=== PATIENT | female | born 1955 | race Caucasian/White ===

== ENCOUNTER 2017-03-01 00:33 | Emergency (ER) | payer OTHER ==
[~2017-03-01] VITALS: Ht 167.6 cm; Wt 73.0 kg
[~2017-03-01 00:33] MED LIST: CARV3.1246 PO; DULO60CA41 PO; FURO40TA5 PO; KLO1 PO; METF-305 PO; PARO30TA62 PO; POTA10TA80 PO; SIMV40TA5 PO; SPIR50TA26 PO
[2017-03-01 00:35] VITALS: BP_SYST 156
--- NOTE | 2017-03-01 00:35 | NUR ---
Patient to ER bed 1 to gown for evaluation. Side rails up. Report given to NAHUM RN AND RAQUEL PARKER.
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
--- NOTE | 2017-03-01 02:18 | NUR ---
ER at bedside examining patient.
[2017-03-01 02:30] LABS: BILIRUBIN,URINE NEGATIVE (NEGATIVE); BLOOD, URINE NEGATIVE (NEGATIVE); COLOR,URINE YELLOW (YELLOW); GLUCOSE,URINE 3+ (NEGATIVE); KETONES,URINE NEGATIVE (NEGATIVE); LEUKOCYTE ESTERASE ,URINE NEGATIVE (NEGATIVE); NITRITE, URINE NEGATIVE (NEGATIVE); PH,URINE 5.5 (5.0-8.0); PROTEIN URINE NEGATIVE (NEGATIVE); UROBILINOGEN,URINE 0.2 (0.2-1.0)
[2017-03-01 02:51] LABS: CLARITY/URINE SLIGHTLY HAZY (CLEAR)
[2017-03-01 02:53] LABS: BACTERIA,URINE MODERATE /HPF (None Seen); MUCUS,URINE None Seen /LPF (None Seen); RBC,URINE 0-3 /HPF (0-3)
[2017-03-01 03:01] VITALS: BP_SYST 136
--- NOTE | 2017-03-01 03:01 | NUR ---
Patient given written and verbal discharge instructions and verbalizes understanding. ER MD discussed with patient the results and treatment provided. G Patient in stable condition. ID arm band removed. Patient educated on pain management and to follow up with PMD x 4-5 days. Pain Scale 0/10 Opportunity for questions provided and answered.
== END 2017-03-01 03:01 | disposition home or self-care (01) ==
LOC: SED 00:33
DX: F41.9 Anxiety disorder, unspecified (principal); E11.65 Type 2 diabetes mellitus with hyperglycemia; I50.9 Heart failure, unspecified; F32.9 Major depressive disorder, single episode, unspecified; Z88.8 Allergy status to other drugs, medicaments and biological substances; Z88.5 Allergy status to narcotic agent
CPT/HCPCS: 81000-TC; 82962; 87086; 99284

== ENCOUNTER 2017-03-31 16:30 | Emergency (ER) | payer OTHER ==
[~2017-03-31] VITALS: Ht 167.6 cm; Wt 73.5 kg
[2017-03-31 16:30] VITALS: BP_SYST 147
[2017-03-31] MEDS ORDERED: LORazepam 1 MG TABLET PO ONE (17:00)
[2017-03-31 17:13] LABS: BASOPHILS # (AUTO) 0.1 K/uL (0.0-0.2); BASOPHILS % (AUTO) 0.8 % (0.0-2.0); EOSINOPHILS # (AUTO) 0.2 K/uL (0.0-0.4); HEMATOCRIT 35.1 % (36-48); HEMOGLOBIN 11.6 g/dL (12.0-16.0); LYMPHOCYTES # (AUTO) 2.6 K/uL (1.0-5.5); LYMPHOCYTES % (AUTO) 30.9 % (20.5-51.5); MEAN CORPUSCULAR HEMOGLOBIN 28 pg (27-31); MEAN CORPUSCULAR HGB CONC 33 % (32-36); MEAN CORPUSCULAR VOLUME 83 fL (79.0-98.0); MONOCYTES # (AUTO) 0.6 K/uL (0.0-1.0); MONOCYTES % (AUTO) 7.1 % (1.7-9.3); NEUTROPHILS # (AUTO) 4.8 K/uL (1.8-7.7); NEUTROPHILS % (AUTO) 58.2 % (40.0-70.0); PLATELET COUNT (AUTO) 279 K/uL (130-430); RED BLOOD CELL COUNT(AUTO) 4.23 MIL/uL (4.2-6.2); RED CELL DISTRIBUTION WIDTH 12.6 % (9.0-15.0); WHITE BLOOD COUNT (AUTO) 8.3 K/uL (4.8-10.8)
[2017-03-31 17:25] LABS: ANION GAP 9 (5-15); CALCIUM 8.1 mg/dL (8.4-11.0); CHLORIDE 105 mmol/L (98-107); CREATININE 1.41 mg/dL (0.55-1.30); GLUCOSE 149 mg/dL (70-99); POTASSIUM 4.2 mmol/L (3.5-5.1); SODIUM SERUM 141 mmol/L (136-145); UREA NITROGEN, BLOOD 24 mg/dL (8-21)
[2017-03-31 17:26] LABS: GFR AFRICAN AMERICAN 49 mL/min (>90)
[2017-03-31 18:20] VITALS: BP_SYST 136
== END 2017-03-31 18:20 | disposition home or self-care (01) ==
LOC: SED 16:30
DX: Z76.0 Encounter for issue of repeat prescription (principal); F41.9 Anxiety disorder, unspecified; E11.9 Type 2 diabetes mellitus without complications; Z86.73 Personal history of transient ischemic attack (TIA), and cerebral infarction without residual deficits; Z88.6 Allergy status to analgesic agent; Z88.8 Allergy status to other drugs, medicaments and biological substances
CPT/HCPCS: 36415; 80048; 84484; 85025; 93005; 99285

== ENCOUNTER 2017-04-20 00:21 | Emergency (ER) | payer OTHER ==
[~2017-04-20] VITALS: Ht 167.6 cm; Wt 72.6 kg
[2017-04-20 00:22] VITALS: BP_SYST 129
[2017-04-20 01:06] LABS: BASOPHILS # (AUTO) 0.1 K/uL (0.0-0.2); BASOPHILS % (AUTO) 1.1 % (0.0-2.0); EOSINOPHILS # (AUTO) 0.3 K/uL (0.0-0.4); EOSINOPHILS % (AUTO) 3.1 % (0.0-4.0); HEMATOCRIT 36.7 % (36-48); HEMOGLOBIN 12.5 g/dL (12.0-16.0); LYMPHOCYTES # (AUTO) 2.6 K/uL (1.0-5.5); LYMPHOCYTES % (AUTO) 24.9 % (20.5-51.5); MEAN CORPUSCULAR HEMOGLOBIN 29 pg (27-31); MEAN CORPUSCULAR HGB CONC 34 % (32-36); MEAN CORPUSCULAR VOLUME 84 fL (79.0-98.0); MONOCYTES # (AUTO) 0.9 K/uL (0.0-1.0); MONOCYTES % (AUTO) 8.4 % (1.7-9.3); NEUTROPHILS # (AUTO) 6.4 K/uL (1.8-7.7); NEUTROPHILS % (AUTO) 62.5 % (40.0-70.0); PLATELET COUNT (AUTO) 276 K/uL (130-430); RED BLOOD CELL COUNT(AUTO) 4.39 MIL/uL (4.2-6.2); RED CELL DISTRIBUTION WIDTH 11.9 % (9.0-15.0); WHITE BLOOD COUNT (AUTO) 10.3 K/uL (4.8-10.8)
[2017-04-20 01:18] LABS: CALCIUM 8.3 mg/dL (8.4-11.0); CREATININE 1.49 mg/dL (0.55-1.30)
[2017-04-20 01:23] LABS: ALBUMIN 3.6 g/dL (3.4-4.8); TOTAL BILIRUBIN 0.5 mg/dL (0.0-1.0); TOTAL PROTEIN, SERUM 7.7 g/dL (6.4-8.3)
[2017-04-20 01:52] LABS: BILIRUBIN,URINE NEGATIVE (NEGATIVE); BLOOD, URINE NEGATIVE (NEGATIVE); CLARITY/URINE CLEAR (CLEAR); COLOR,URINE YELLOW (YELLOW); GLUCOSE,URINE NEGATIVE (NEGATIVE); KETONES,URINE NEGATIVE (NEGATIVE); LEUKOCYTE ESTERASE ,URINE 1+ (NEGATIVE); NITRITE, URINE NEGATIVE (NEGATIVE); PH,URINE 5.5 (5.0-8.0); PROTEIN URINE NEGATIVE (NEGATIVE); UROBILINOGEN,URINE 0.2 (0.2-1.0)
[2017-04-20 02:13] LABS: RBC,URINE 0-3 /HPF (0-3)
[2017-04-20 02:14] LABS: BACTERIA,URINE MODERATE /HPF (None Seen); FINE GRANULAR CASTS,URINE 0-10 /LPF (None Seen); MUCUS,URINE 1+ /LPF (None Seen)
[2017-04-20 02:36] VITALS: BP_SYST 129
== END 2017-04-20 02:36 | disposition home or self-care (01) ==
LOC: SED 00:21
DX: K43.2 Incisional hernia without obstruction or gangrene (principal); N39.0 Urinary tract infection, site not specified; Z86.73 Personal history of transient ischemic attack (TIA), and cerebral infarction without residual deficits; Z88.8 Allergy status to other drugs, medicaments and biological substances
CPT/HCPCS: 36415; 80053; 81000-TC; 82150-TC; 83605; 83690-TC; 85025; 87040-TC; 87086; 93005; 99285

== ENCOUNTER 2017-10-20 00:53 | Emergency (ER) | payer OTHER ==
[~2017-10-20] VITALS: Ht 165.1 cm; Wt 73.0 kg
[2017-10-20 00:55] VITALS: BP_SYST 157
[2017-10-20] MEDS ORDERED: ACETAMINOPHEN 325 MG TABLET PO ONE (01:30)
[2017-10-20 03:00] VITALS: BP_SYST 154
[2017-10-21] MEDS ORDERED: LORA-258 PO (00:16)
[2017-10-21] MEDS ORDERED: SPIR25TA4 PO (00:16)
[2017-10-21] MEDS ORDERED: GLIM1TAB PO (00:16)
== END 2017-10-20 03:05 | disposition home or self-care (01) ==
LOC: SED 00:53
DX: K42.9 Umbilical hernia without obstruction or gangrene (principal); E11.9 Type 2 diabetes mellitus without complications; I50.9 Heart failure, unspecified; F32.9 Major depressive disorder, single episode, unspecified; Z88.5 Allergy status to narcotic agent; Z88.8 Allergy status to other drugs, medicaments and biological substances; Z79.899 Other long term (current) drug therapy
CPT/HCPCS: 82962; 99282

== ENCOUNTER 2019-06-03 00:16 | Inpatient (IN) | payer OTHER ==
[~2019-06-03] VITALS: Ht 165.1 cm; Wt 75.3 kg
[~2019-06-03 00:16] MED LIST changes: +GLIM1TAB PO; +LORA-258 PO; -METF-305 PO; +METF-381 PO; +POTA10TA PO; -POTA10TA80 PO; +SPIR25TA6 PO; -SPIR50TA26 PO
--- NOTE | 2019-06-03 00:30 | NUR ---
Patient to ER bed 4 to gown for evaluation. Side rails up.
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
--- NOTE | 2019-06-03 00:40 | NUR ---
ER at bedside examining patient.
[2019-06-03] MEDS ORDERED: NS 500 ML IV ONE (01:00)
--- NOTE | 2019-06-03 01:00 | NUR ---
PT resting comfortably in bed, no signs of acute distress. Will cont. to monitor.
[2019-06-03 01:49] LABS: BASOPHILS # (AUTO) 0.1 K/uL (0.0-0.2); BASOPHILS % (AUTO) 1.3 % (0.0-2.0); EOSINOPHILS # (AUTO) 0.2 K/uL (0.0-0.4); HEMATOCRIT 38.4 % (36-48); HEMOGLOBIN 12.8 g/dL (12.0-16.0); LYMPHOCYTES # (AUTO) 2.7 K/uL (1.0-5.5); LYMPHOCYTES % (AUTO) 29.2 % (20.5-51.5); MEAN CORPUSCULAR HEMOGLOBIN 28 pg (27-31); MEAN CORPUSCULAR HGB CONC 33 % (32-36); MEAN CORPUSCULAR VOLUME 84 fL (79.0-98.0); MONOCYTES # (AUTO) 0.7 K/uL (0.0-1.0); MONOCYTES % (AUTO) 8.1 % (1.7-9.3); NEUTROPHILS # (AUTO) 5.4 K/uL (1.8-7.7); NEUTROPHILS % (AUTO) 59.4 % (40.0-70.0); PLATELET COUNT (AUTO) 259 K/uL (130-430); RED BLOOD CELL COUNT(AUTO) 4.56 MIL/uL (4.2-6.2); WHITE BLOOD COUNT (AUTO) 9.2 K/uL (4.8-10.8)
--- NOTE | 2019-06-03 02:00 | NUR ---
PT resting comfortably in bed, no signs of acute distress. Will cont. to monitor.
[2019-06-03 02:05] LABS: CALCIUM 8.3 mg/dL (8.4-11.0); CREATININE 1.49 mg/dL (0.55-1.30); POTASSIUM 3.2 mmol/L (3.5-5.1)
[2019-06-03 02:10] LABS: ALBUMIN 3.1 g/dL (3.4-4.8); TOTAL BILIRUBIN 0.4 mg/dL (0.0-1.0)
[2019-06-03 02:21] LABS: PROTHROMBIN TIME 10.6 SECS (9.5-12.5)
[2019-06-03] MEDS ORDERED: NACL 0.9% 2,000 ML IV ONE (02:45)
[2019-06-03] MEDS ORDERED: cefTRIAXone 1 GM IVPB PREMIX 50 ML IV ONE (02:45)
[2019-06-03 02:59] LABS: BILIRUBIN,URINE NEGATIVE (NEGATIVE); BLOOD, URINE NEGATIVE (NEGATIVE); CLARITY/URINE CLEAR (CLEAR); COLOR,URINE YELLOW (YELLOW); GLUCOSE,URINE TRACE (NEGATIVE); KETONES,URINE NEGATIVE (NEGATIVE); LEUKOCYTE ESTERASE ,URINE NEGATIVE (NEGATIVE); NITRITE, URINE NEGATIVE (NEGATIVE); PH,URINE 5.5 (5.0-8.0); PROTEIN URINE TRACE (NEGATIVE); UROBILINOGEN,URINE 0.2 (0.2-1.0)
[2019-06-03] MEDS ORDERED: POTASSIUM CHLORIDE 20 MEQ TAB.PRT.SR PO ONE (03:00)
[2019-06-03 03:03] LABS: BACTERIA,URINE MODERATE /HPF (None Seen); RBC,URINE 0-3 /HPF (0-3); WBC,URINE 0-3 /HPF (0-3)
--- NOTE | 2019-06-03 03:28 | NUR ---
Medication reconciliation completed with information provided by patient. Any prior medication reconciliation on file was reviewed and corrected.
--- NOTE | 2019-06-03 03:55 | NUR ---
Patient will be admitted to care of Dr. Sanchez. Admitted to Tele unit. Will go to room 135. Belongings list completed. Summary report printed. Report will be given at bedside.
[2019-06-03] MEDS ORDERED: ONDANSETRON HCL 4 MG/2 ML VIAL IVP PRN (04:30)
[2019-06-03] MEDS ORDERED: NACL 0.9% 1,000 ML IV ONE (04:30)
[2019-06-03] MEDS ORDERED: ACETAMINOPHEN 325 MG TABLET PO PRN (04:30)
--- NOTE | 2019-06-03 04:43 | NUR ---
Transfer to Tele via ACLS protocol. Licensed nurse present. IV present no signs or symptoms of infiltration.
--- NOTE | 2019-06-03 04:43 | NUR ---
ADMISSION: The patient, MORRO CABALLERO, 64 y/o, F admitted with diagnosis of elevated lactic acid , was given written information regarding hospital policies, unit procedures and contact persons by primary nurse, Catherine Abrams RN.
[2019-06-03 05:17] VITALS: BP_SYST 152
[2019-06-03 06:16] LABS: BASOPHILS # (AUTO) 0.1 K/uL (0.0-0.2); BASOPHILS % (AUTO) 0.8 % (0.0-2.0); EOSINOPHILS # (AUTO) 0.2 K/uL (0.0-0.4); EOSINOPHILS % (AUTO) 2.2 % (0.0-4.0); HEMATOCRIT 35.4 % (36-48); HEMOGLOBIN 11.9 g/dL (12.0-16.0); LYMPHOCYTES # (AUTO) 3.5 K/uL (1.0-5.5); LYMPHOCYTES % (AUTO) 35.3 % (20.5-51.5); MEAN CORPUSCULAR HEMOGLOBIN 29 pg (27-31); MEAN CORPUSCULAR HGB CONC 34 % (32-36); MEAN CORPUSCULAR VOLUME 85 fL (79.0-98.0); MONOCYTES # (AUTO) 0.8 K/uL (0.0-1.0); MONOCYTES % (AUTO) 7.6 % (1.7-9.3); NEUTROPHILS # (AUTO) 5.3 K/uL (1.8-7.7); NEUTROPHILS % (AUTO) 54.1 % (40.0-70.0); PLATELET COUNT (AUTO) 234 K/uL (130-430); RED BLOOD CELL COUNT(AUTO) 4.16 MIL/uL (4.2-6.2); RED CELL DISTRIBUTION WIDTH 13.2 % (9.0-15.0); WHITE BLOOD COUNT (AUTO) 9.9 K/uL (4.8-10.8)
[2019-06-03 08:00] VITALS: BP_SYST 149
[2019-06-03] MEDS ORDERED: LEVOFLOXACIN 500 MG/D5W 100 ML IV ONE (08:00)
--- NOTE | 2019-06-03 08:00 | NUR ---
RN OPENING NOTE PATIENT IS RESTING IN BED, ALERT ORIENTED X4, PATIENT WAS ASSESED , DENIES PAIN OR DISCOMFORT. PATIENT VITAL SIGNS ARE STABLE. BED AT LOW POSITION AND CALL LIGHT WITHIN REACH, BED ALARM IS ON, WILL CONTINUE TO MONITOR.
[2019-06-03] MEDS ORDERED: LORazepam 1 MG TABLET PO PRN (08:30)
[2019-06-03] MEDS ORDERED: INSULIN REGULAR, HUMAN 100 UNITS/ML, 10 ML VIAL (humuLIN R) SUBCUT PRN ×2 (08:30→10:00)
[2019-06-03 08:37] LABS: ALBUMIN 2.8 g/dL (3.4-4.8); CALCIUM 8.3 mg/dL (8.4-11.0); CREATININE 1.34 mg/dL (0.55-1.30); POTASSIUM 3.1 mmol/L (3.5-5.1); TOTAL BILIRUBIN 0.3 mg/dL (0.0-1.0)
[2019-06-03] MEDS ORDERED: CARVEDILOL 3.125 MG TABLET (COREG) PO SCH (09:00)
[2019-06-03] MEDS ORDERED: POTASSIUM CHLORIDE 10 MEQ TAB.PRT.SR PO SCH (09:00)
[2019-06-03] MEDS ORDERED: SPIRONOLACTONE 25 MG TABLET (ALDACTONE) PO SCH (09:00)
[2019-06-03] MEDS ORDERED: FUROSEMIDE 40 MG TABLET PO SCH (09:00)
[2019-06-03] MEDS ORDERED: ENOXAPARIN SODIUM 40 MG/0.4 ML SYRINGE SUBCUT SCH (09:00)
[2019-06-03] MEDS ORDERED: GLIMEPIRIDE 2 MG TABLET PO SCH (09:00)
[2019-06-03] MEDS ORDERED: DULoxetine HCL 30 MG CAPSULE.DR (CYMBALTA) PO SCH (09:00)
--- NOTE | 2019-06-03 10:00 | NUR ---
RN NOTE PATIENT WAS SEEN BY DR. CONTRERAS, DENIES PAIN OR DISCOMFORT. PATIENT WAS GIVEN HER MEDICATION AND EDUCATED ABOUT THEIR INDICATIONS AND SIDE EFFECTS. WILL CONTINUE TO MONITOR.
[2019-06-03] MEDS ORDERED: D5W 1,000 ML IV PRN (10:15)
[2019-06-03] MEDS ORDERED: DEXTROSE 50%-WATER 50 ML DISP.SYRIN IVP PRN (10:15)
[2019-06-03] MEDS ORDERED: GLUCOSE 15 GM GEL (in 37.5 GM TUBE) PO PRN (10:15)
[2019-06-03 11:27] VITALS: BP_SYST 133
--- NOTE | 2019-06-03 12:00 | NUR ---
RN NOTE PATIENT IS RESTING IN BED, WAS SERVED HER LUNCH, DENIES PAIN OR DISCOMFORT.
--- NOTE | 2019-06-03 14:00 | NUR ---
RN NOTE PATIENT IS RESTING ON BED WATCHING TV. NO COMPLAINT
[2019-06-03 15:34] VITALS: BP_SYST 113
--- NOTE | 2019-06-03 16:00 | NUR ---
RN NOTE DR. CONTRERAS WAS CONTACTED AND AN ORDER TO DISCHARGE THE PATIENT HOME WAS RECEIVED. DR. CONTRERAS AGREED THE PATIENT CAN DRIVE HERSELF HOME AFTER THE PATIENT REFUSED US TO NOTIFY ANY OF HER FAMILY MEMBER.
[2019-06-03 17:52] VITALS: BP_SYST 113
[2019-06-03] MEDS ORDERED: metFORMIN HCL 500 MG TABLET PO SCH (18:00)
--- NOTE | 2019-06-03 18:35 | NUR ---
HOUSE SITTER NOTE PATIENT WAS SERVED HER DINNER, PATIENT WAS GIVEN HER METFORMIN. AND THEN PATIENT WAS GIVEN HER DISCHARGE INSTRUCTIONS, AND EDUCATIONS. SHE VERBALIZED UNDERSTANDING. PATIENT SALINE LOCK WAS REMOVED AND A BAND AID WAS PLACED INSTEAD. PATIENT WAS THEN ESCORTED TO HER CAR IN THE PARKING LOT WHERE SHE LEFT GOING BACK TO HER HOME . THAT IS NEXT TO THE HOSPITAL. AND HERE BY i SIGN OFF PATIENT'S CARE.
[2019-06-03] MEDS ORDERED: SIMVASTATIN 40 MG TABLET PO SCH (21:00)
[2019-06-04] MEDS ORDERED: LEVOFLOXACIN 250 MG/D5W 50 ML IV SCH (08:00)
== END 2019-06-03 18:35 | disposition home or self-care (01) | DRG 690 ==
LOC: SED 00:16 → STU 04:28
PROVIDERS: ADMIT Internal Medicine; ATTEND Internal Medicine
DX: N12 Tubulo-interstitial nephritis, not specified as acute or chronic (principal); I42.9 Cardiomyopathy, unspecified; E11.9 Type 2 diabetes mellitus without complications; E78.5 Hyperlipidemia, unspecified; I11.0 Hypertensive heart disease with heart failure; Z77.22 Contact with and (suspected) exposure to environmental tobacco smoke (acute) (chronic); I50.9 Heart failure, unspecified; J44.9 Chronic obstructive pulmonary disease, unspecified; F32.9 Major depressive disorder, single episode, unspecified; F41.9 Anxiety disorder, unspecified; Z79.899 Other long term (current) drug therapy; Z88.5 Allergy status to narcotic agent; Z88.8 Allergy status to other drugs, medicaments and biological substances
CPT/HCPCS: 36415; 71045; 80053; 81000-TC; 81003; 83605; 84484; 85025; 85610-TC; 85730-TC; 87040-TC; 87086; 93005; 96361; 96365; 99285; G0378; J0696; J1650; J1815; J1956; J7030; J7040

== ENCOUNTER 2019-11-18 00:02 | Emergency (ER) | payer OTHER ==
[~2019-11-18] VITALS: Ht 167.6 cm; Wt 72.6 kg
[~2019-11-18 00:02] MED LIST changes: -KLO1 PO
[2019-11-18 00:25] VITALS: BP_SYST 131
--- NOTE | 2019-11-18 00:25 | NUR ---
Pt BIB BLS, placed to ER bed 01. Pt from home with c/o urinary frequency, "UTI" and lower back pain x 1 week. Pt states that she was seen x 1 week ago at an urgent care and was Dx with UTI and has since been taking Azo with no relief. Denies urinary burning or hematuria.
--- NOTE | 2019-11-18 00:35 | NUR ---
Dr. Oreilly at bedside.
[2019-11-18 00:55] LABS: BILIRUBIN,URINE NEGATIVE (NEGATIVE); BLOOD, URINE NEGATIVE (NEGATIVE); CLARITY/URINE CLEAR (CLEAR); COLOR,URINE YELLOW (YELLOW); GLUCOSE,URINE NEGATIVE (NEGATIVE); KETONES,URINE NEGATIVE (NEGATIVE); LEUKOCYTE ESTERASE ,URINE TRACE (NEGATIVE); NITRITE, URINE NEGATIVE (NEGATIVE); PROTEIN URINE NEGATIVE (NEGATIVE); UROBILINOGEN,URINE 0.2 (0.2-1.0)
[2019-11-18 01:00] LABS: BACTERIA,URINE FEW /HPF (None Seen); RBC,URINE 0-3 /HPF (0-3)
--- NOTE | 2019-11-18 02:05 | NUR ---
Dr. Oreilly at bedside to update on POC.
[2019-11-18] MEDS ORDERED: cefTRIAXone 1 GM VIAL IM ONE (02:15)
[2019-11-18 02:25] VITALS: BP_SYST 128
--- NOTE | 2019-11-18 02:25 | NUR ---
Patient given written and verbal discharge instructions and verbalizes understanding. ER MD discussed with patient the results and treatment provided. Patient in stable condition. ID arm band removed. Rx of Cipro given. Patient educated on pain management and to follow up with PMD. Pain Scale 0/10. Opportunity for questions provided and answered. Medication side effect fact sheet provided.
[2019-11-18] MEDS ORDERED: LIDOCAINE 1%, 20 ML MDV 20 ML ONE (02:28)
[2019-11-18] MEDS ORDERED: LIDOCAINE 1% 10 MG/ML, 20 ML MDV INJ ONE (02:30)
== END 2019-11-18 02:25 | disposition home or self-care (01) ==
LOC: SED 00:02
DX: N39.0 Urinary tract infection, site not specified (principal); E11.9 Type 2 diabetes mellitus without complications; F32.9 Major depressive disorder, single episode, unspecified; Z88.8 Allergy status to other drugs, medicaments and biological substances; Z88.5 Allergy status to narcotic agent; Z79.84 Long term (current) use of oral hypoglycemic drugs; Z79.899 Other long term (current) drug therapy
CPT/HCPCS: 81000; 96372; 99283; J0696; J2001

== ENCOUNTER 2020-08-01 15:29 | Emergency (ER) | payer OTHER ==
[~2020-08-01] VITALS: Ht 167.6 cm; Wt 74.8 kg
[2020-08-01 15:48] VITALS: BP_SYST 143
[2020-08-01] MEDS ORDERED: NACL 0.9% 1,000 ML IV ONE (17:51)
[2020-08-01 18:14] LABS: BASOPHILS # (AUTO) 0.1 K/uL (0.0-0.2); BASOPHILS % (AUTO) 1.1 % (0.0-2.0); EOSINOPHILS # (AUTO) 0.1 K/uL (0.0-0.4); EOSINOPHILS % (AUTO) 1.7 % (0.0-4.0); HEMATOCRIT 30.2 % (36-48); HEMOGLOBIN 10.2 g/dL (12.0-16.0); LYMPHOCYTES # (AUTO) 1.9 K/uL (1.0-5.5); LYMPHOCYTES % (AUTO) 23.2 % (20.5-51.5); MEAN CORPUSCULAR HEMOGLOBIN 29 pg (27-31); MEAN CORPUSCULAR HGB CONC 34 % (32-36); MEAN CORPUSCULAR VOLUME 85 fL (79.0-98.0); MONOCYTES # (AUTO) 0.6 K/uL (0.0-1.0); MONOCYTES % (AUTO) 7.2 % (1.7-9.3); NEUTROPHILS # (AUTO) 5.5 K/uL (1.8-7.7); NEUTROPHILS % (AUTO) 66.8 % (40.0-70.0); PLATELET COUNT (AUTO) 227 K/uL (130-430); RED BLOOD CELL COUNT(AUTO) 3.56 MIL/uL (4.2-6.2); RED CELL DISTRIBUTION WIDTH 12.7 % (9.0-15.0); WHITE BLOOD COUNT (AUTO) 8.2 K/uL (4.8-10.8)
[2020-08-01 18:23] LABS: CALCIUM 8.4 mg/dL (8.4-11.0); CREATININE 2.54 mg/dL (0.55-1.30); POTASSIUM 3.5 mmol/L (3.5-5.1)
[2020-08-01 18:29] LABS: ALBUMIN 3.3 g/dL (3.4-4.8); TOTAL BILIRUBIN 0.5 mg/dL (0.0-1.0)
[2020-08-01 19:31] VITALS: BP_SYST 138
== END 2020-08-01 19:30 | disposition home or self-care (01) ==
LOC: SED 15:29
DX: N39.0 Urinary tract infection, site not specified (principal); R10.84 Generalized abdominal pain; F41.0 Panic disorder [episodic paroxysmal anxiety]; E11.9 Type 2 diabetes mellitus without complications; I50.9 Heart failure, unspecified; Z79.899 Other long term (current) drug therapy; Z88.8 Allergy status to other drugs, medicaments and biological substances; Z88.6 Allergy status to analgesic agent
CPT/HCPCS: 36415; 74176; 76700; 80053; 83690; 85025; 96360; 99285; J7030

== ENCOUNTER 2021-03-19 18:35 | Emergency (ER) | payer OTHER ==
[~2021-03-19] VITALS: Ht 165.1 cm; Wt 68.0 kg
[~2021-03-19 18:35] MED LIST changes: +SIMV-46 PO; -SIMV40TA5 PO
[2021-03-19 18:45] VITALS: BP_SYST 112
[2021-03-19] MEDS ORDERED: NACL 0.9% 1,000 ML IV ONE (19:15)
[2021-03-19 19:44] LABS: BASOPHILS # (AUTO) 0.1 K/uL (0.0-0.2); BASOPHILS % (AUTO) 1.4 % (0.0-2.0); EOSINOPHILS # (AUTO) 0.4 K/uL (0.0-0.4); EOSINOPHILS % (AUTO) 4.1 % (0.0-4.0); HEMATOCRIT 25.3 % (36-48); HEMOGLOBIN 8.2 g/dL (12.0-16.0); LYMPHOCYTES # (AUTO) 2.4 K/uL (1.0-5.5); LYMPHOCYTES % (AUTO) 23.8 % (20.5-51.5); MEAN CORPUSCULAR HEMOGLOBIN 28 pg (27-31); MEAN CORPUSCULAR HGB CONC 33 % (32-36); MEAN CORPUSCULAR VOLUME 87 fL (79.0-98.0); MONOCYTES # (AUTO) 0.7 K/uL (0.0-1.0); MONOCYTES % (AUTO) 6.7 % (1.7-9.3); NEUTROPHILS # (AUTO) 6.4 K/uL (1.8-7.7); PLATELET COUNT (AUTO) 238 K/uL (130-430); RED CELL DISTRIBUTION WIDTH 13.1 % (9.0-15.0); WHITE BLOOD COUNT (AUTO) 10.1 K/uL (4.8-10.8)
[2021-03-19 19:53] LABS: BILIRUBIN,URINE NEGATIVE (NEGATIVE); BLOOD, URINE NEGATIVE (NEGATIVE); COLOR,URINE YELLOW (YELLOW); GLUCOSE,URINE NEGATIVE (NEGATIVE); KETONES,URINE NEGATIVE (NEGATIVE); LEUKOCYTE ESTERASE ,URINE 1+ (NEGATIVE); NITRITE, URINE NEGATIVE (NEGATIVE); PH,URINE 5.5 (5.0-8.0); PROTEIN URINE TRACE (NEGATIVE); UROBILINOGEN,URINE 0.2 (0.2-1.0)
[2021-03-19 20:03] LABS: CLARITY/URINE HAZY (CLEAR)
[2021-03-19 20:07] LABS: BACTERIA,URINE None Seen /HPF (None Seen); CALCIUM OXALATE CRYSTALS,UR None Seen /HPF (None Seen); CALCIUM PHOSPHATE CRYSTALS,UR None Seen /HPF (None Seen); RBC,URINE NONE SEEN /HPF (0-3); TRICHOMONAS,URINE None Seen /HPF (None Seen); WBC,URINE 20-50 /HPF (0-3); YEAST,URINE None Seen /HPF (None Seen)
[2021-03-19 20:16] LABS: CREATININE 5.49 mg/dL (0.55-1.30); POTASSIUM 4.8 mmol/L (3.5-5.1)
[2021-03-19 20:21] LABS: ALBUMIN 3.4 g/dL (3.4-4.8); TOTAL BILIRUBIN 0.6 mg/dL (0.0-1.0)
[2021-03-19] MEDS ORDERED: cefTRIAXone 1 GM IVPB PREMIX 50 ML IV ONE (21:00)
[2021-03-19] MEDS ORDERED: CEPH250C PO (21:37)
[2021-03-19 22:11] VITALS: BP_SYST 116
== END 2021-03-19 22:11 | disposition home or self-care (01) ==
LOC: SED 18:35
DX: N39.0 Urinary tract infection, site not specified (principal); I50.9 Heart failure, unspecified; E11.9 Type 2 diabetes mellitus without complications; Z90.49 Acquired absence of other specified parts of digestive tract; Z79.899 Other long term (current) drug therapy; Z88.6 Allergy status to analgesic agent; Z88.8 Allergy status to other drugs, medicaments and biological substances
CPT/HCPCS: 36415; 74176; 76376; 80053; 81000; 83605; 85025; 87040; 87086; 96361; 96365; 99284; J0696; J7030

== ENCOUNTER 2022-02-16 23:18 | Emergency (ER) | payer OTHER, SELFPAY ==
[~2022-02-16] VITALS: Ht 160 cm; Wt 77.1 kg
[~2022-02-16 23:18] MED LIST changes: -DULO60CA41 PO; +DULO60CA42 PO; -FURO40TA5 PO; -GLIM1TAB PO; -METF-381 PO; -POTA10TA PO; +SODI650T PO; -SPIR25TA6 PO
[2022-02-16 23:20] VITALS: BP_SYST 140
[2022-02-17 02:58] LABS: BASOPHILS # (AUTO) 0.1 K/uL (0.0-0.2); EOSINOPHILS # (AUTO) 0.2 K/uL (0.0-0.4); EOSINOPHILS % (AUTO) 1.8 % (0.0-4.0); HEMATOCRIT 28.9 % (36-48); HEMOGLOBIN 9.7 g/dL (12.0-16.0); LYMPHOCYTES % (AUTO) 23.5 % (20.5-51.5); MEAN CORPUSCULAR HEMOGLOBIN 29 pg (27-31); MEAN CORPUSCULAR HGB CONC 33 % (32-36); MEAN CORPUSCULAR VOLUME 87 fL (79.0-98.0); MONOCYTES # (AUTO) 0.7 K/uL (0.0-1.0); MONOCYTES % (AUTO) 7.9 % (1.7-9.3); NEUTROPHILS # (AUTO) 5.6 K/uL (1.8-7.7); NEUTROPHILS % (AUTO) 65.8 % (40.0-70.0); PLATELET COUNT (AUTO) 173 K/uL (130-430); RED BLOOD CELL COUNT(AUTO) 3.33 MIL/uL (4.2-6.2); RED CELL DISTRIBUTION WIDTH 13.9 % (9.0-15.0); WHITE BLOOD COUNT (AUTO) 8.5 K/uL (4.8-10.8)
[2022-02-17 03:36] LABS: PROTHROMBIN TIME 10.7 SECS (9.5-12.5)
[2022-02-17 05:35] LABS: CALCIUM 7.9 mg/dL (8.4-11.0); CREATININE 4.89 mg/dL (0.55-1.30); POTASSIUM 3.7 mmol/L (3.5-5.1)
[2022-02-17 05:46] LABS: ALBUMIN 3.1 g/dL (3.4-4.8); TOTAL BILIRUBIN 0.5 mg/dL (0.0-1.0)
[2022-02-17 07:21] VITALS: BP_SYST 140
== END 2022-02-17 07:20 | disposition home or self-care (01) ==
LOC: SED 23:18
DX: T82.838A Hemorrhage due to vascular prosthetic devices, implants and grafts, initial encounter (principal); I13.2 Hypertensive heart and chronic kidney disease with heart failure and with stage 5 chronic kidney disease, or end stage renal disease; E11.22 Type 2 diabetes mellitus with diabetic chronic kidney disease; N18.6 End stage renal disease; I50.9 Heart failure, unspecified; Z99.2 Dependence on renal dialysis
CPT/HCPCS: 36415; 71045; 80053; 82962; 85025; 85610-TC; 85730-TC; 86886; 86900; 86901; 99284

== ENCOUNTER 2022-07-17 16:47 | Emergency (ER) | payer OTHER ==
[~2022-07-17] VITALS: Ht 165.1 cm; Wt 73.5 kg
[2022-07-17 16:50] VITALS: BP_SYST 135
--- NOTE | 2022-07-17 16:50 | NUR ---
Patient triaged and placed in waiting room. VSS and patient appears in no acute distress at this time. Accompanied by DAUGHTER, awaiting available bed, and MD notified of need for MSE.
[2022-07-17 19:51] LABS: BASOPHILS # (AUTO) 0.3 K/uL (0.0-0.2); BASOPHILS % (AUTO) 3.7 % (0.0-2.0); EOSINOPHILS # (AUTO) 0.2 K/uL (0.0-0.4); EOSINOPHILS % (AUTO) 2.1 % (0.0-4.0); HEMATOCRIT 34.4 % (36-48); HEMOGLOBIN 11.2 g/dL (12.0-16.0); LYMPHOCYTES % (AUTO) 21.8 % (20.5-51.5); MEAN CORPUSCULAR HEMOGLOBIN 29 pg (27-31); MEAN CORPUSCULAR HGB CONC 33 % (32-36); MEAN CORPUSCULAR VOLUME 88 fL (79.0-98.0); MONOCYTES # (AUTO) 0.5 K/uL (0.0-1.0); MONOCYTES % (AUTO) 5.6 % (1.7-9.3); NEUTROPHILS # (AUTO) 6.1 K/uL (1.8-7.7); NEUTROPHILS % (AUTO) 66.8 % (40.0-70.0); PLATELET COUNT (AUTO) 189 K/uL (130-430); RED BLOOD CELL COUNT(AUTO) 3.92 MIL/uL (4.2-6.2); RED CELL DISTRIBUTION WIDTH 15.4 % (9.0-15.0); WHITE BLOOD COUNT (AUTO) 9.2 K/uL (4.8-10.8)
[2022-07-17 20:02] LABS: ANION GAP 12 (5-15); CALCIUM 8.3 mg/dL (8.4-11.0); CHLORIDE 97 mmol/L (98-107); CREATININE 3.41 mg/dL (0.55-1.30); POTASSIUM 3.6 mmol/L (3.5-5.1); SODIUM SERUM 132 mmol/L (136-145); UREA NITROGEN, BLOOD 26 mg/dL (8-21)
[2022-07-17 20:10] LABS: GFR AFRICAN AMERICAN 17 mL/min (>90); GLUCOSE 486 mg/dL (70-99)
[2022-07-17 20:11] LABS: ALANINE AMINOTRANSFERASE 17 U/L (12-78); ALBUMIN 2.7 g/dL (3.4-4.8); ASPARTATE AMINOTRANSFERASE 9 U/L (10-37); TOTAL BILIRUBIN 0.4 mg/dL (0.0-1.0)
--- NOTE | 2022-07-17 21:31 | NUR ---
PT UPDATED ON HER STATUS, INFORMED HER. STILL WAITING FOR HER XRAY RESULTS. SHE VERBALIZED UNDERSTANDING
--- NOTE | 2022-07-17 21:40 | NUR ---
DR. JENKINS WITH PATIENT AND FAMILY MEMBERS FOR RE EVALS
[2022-07-17] MEDS ORDERED: INSULIN REGULAR, HUMAN 10 UNITS/0.1 ML INJ SUBCUT ONE ×2 (21:45→22:00)
[2022-07-17 22:01] VITALS: BP_SYST 157
--- NOTE | 2022-07-17 22:02 | NUR ---
DC PT HOME AAOX4, NO SOB NOTED AND NOT IN ANY DISTRESS. DC INSTRUCTION WERE GIVEN TO PT ALSO INSTRUCTED TO F/U WITH HER PCP. SHE VERBALIZED UNDERSTANDING
== END 2022-07-17 22:02 | disposition home or self-care (01) ==
LOC: SED 16:47
DX: T82.42XA Displacement of vascular dialysis catheter, initial encounter (principal); E11.65 Type 2 diabetes mellitus with hyperglycemia; R73.9 Hyperglycemia, unspecified; J44.9 Chronic obstructive pulmonary disease, unspecified; Z88.2 Allergy status to sulfonamides; Z88.6 Allergy status to analgesic agent; Z88.8 Allergy status to other drugs, medicaments and biological substances; Z79.899 Other long term (current) drug therapy
CPT/HCPCS: 99284; 71045; 80053; 82962; 83880; 85025; 84484; 36415; 96372; J1815

== ENCOUNTER 2022-07-19 23:53 | Inpatient (IN) | payer OTHER ==
[~2022-07-19] VITALS: Ht 165.1 cm; Wt 72.6 kg
[2022-07-20 00:05] VITALS: BP_SYST 122
[2022-07-20 01:28] LABS: BILIRUBIN,URINE NEGATIVE (NEGATIVE); COLOR,URINE YELLOW (YELLOW); GLUCOSE,URINE 3+ (NEGATIVE); KETONES,URINE NEGATIVE (NEGATIVE); LEUKOCYTE ESTERASE ,URINE NEGATIVE (NEGATIVE); NITRITE, URINE NEGATIVE (NEGATIVE); PH,URINE 5.5 (5.0-8.0); PROTEIN URINE NEGATIVE (NEGATIVE); UROBILINOGEN,URINE 0.2 (0.2-1.0)
[2022-07-20 01:30] LABS: BLOOD, URINE TRACE (NEGATIVE)
[2022-07-20 01:31] LABS: CLARITY/URINE HAZY (CLEAR)
[2022-07-20 01:34] LABS: BASOPHILS # (AUTO) 0.1 K/uL (0.0-0.2); BASOPHILS % (AUTO) 1.1 % (0.0-2.0); EOSINOPHILS # (AUTO) 0.1 K/uL (0.0-0.4); EOSINOPHILS % (AUTO) 1.4 % (0.0-4.0); HEMATOCRIT 34.3 % (36-48); LYMPHOCYTES # (AUTO) 2.2 K/uL (1.0-5.5); LYMPHOCYTES % (AUTO) 21.9 % (20.5-51.5); MEAN CORPUSCULAR HEMOGLOBIN 29 pg (27-31); MEAN CORPUSCULAR HGB CONC 32 % (32-36); MEAN CORPUSCULAR VOLUME 91 fL (79.0-98.0); MONOCYTES # (AUTO) 0.8 K/uL (0.0-1.0); MONOCYTES % (AUTO) 7.8 % (1.7-9.3); NEUTROPHILS # (AUTO) 6.6 K/uL (1.8-7.7); NEUTROPHILS % (AUTO) 67.8 % (40.0-70.0); PLATELET COUNT (AUTO) 250 K/uL (130-430); RED BLOOD CELL COUNT(AUTO) 3.78 MIL/uL (4.2-6.2); RED CELL DISTRIBUTION WIDTH 15.7 % (9.0-15.0); WHITE BLOOD COUNT (AUTO) 9.8 K/uL (4.8-10.8)
[2022-07-20 01:57] LABS: BACTERIA,URINE FEW /HPF (None Seen); WBC,URINE 0-3 /HPF (0-3)
[2022-07-20 01:58] LABS: MUCUS,URINE 1+ /LPF (None Seen)
[2022-07-20 02:34] LABS: CALCIUM 8.1 mg/dL (8.4-11.0); CREATININE 4.24 mg/dL (0.55-1.30); POTASSIUM 3.5 mmol/L (3.5-5.1)
[2022-07-20 02:35] LABS: ALBUMIN 2.6 g/dL (3.4-4.8); TOTAL BILIRUBIN 0.5 mg/dL (0.0-1.0)
[2022-07-20] MEDS ORDERED: INSULIN REGULAR, HUMAN 10 UNITS/0.1 ML INJ SUBCUT ONE (03:30)
[2022-07-20] MEDS ORDERED: RENA VITE PO (07:00)
[2022-07-20] MEDS ORDERED: FURO-149 PO (07:00)
[2022-07-20] MEDS ORDERED: POTA-197 PO (07:00)
[2022-07-20] MEDS ORDERED: GLUCOSE (DEXTROSE) ORAL GEL -Adults PO PRN (08:30)
[2022-07-20] MEDS ORDERED: D5W 1,000 ML IV PRN (08:30)
[2022-07-20] MEDS ORDERED: DEXTROSE 50% JECT 50 ML DISP.SYRIN IVP PRN (08:30)
[2022-07-20 10:08] LABS: INR 1.1 (0.8-1.2); PROTHROMBIN TIME 10.8 SECS (9.5-12.5)
[2022-07-20] MEDS ORDERED: LORazepam 1 MG TABLET PO SCH (23:00)
[2022-07-21] MEDS: DULoxetine HCL 30 MG CAPSULE.DR (CYMBALTA) PO SCH ×3 (02:16→20:28)
[2022-07-21] MEDS: CARVEDILOL 3.125 MG TABLET (COREG) PO SCH ×3 (02:17→20:39)
[2022-07-21 08:00] VITALS: BP_SYST 124
[2022-07-21] MEDS ORDERED: NON-FORMULARY MEDICATION (Paroxetine Hcl 30 MG) PO SCH (09:00)
[2022-07-21] MEDS ORDERED: PARO-41 PO (09:51)
[2022-07-21] MEDS: NEPHROVITE, (FOLIC ACID/VITAMIN B COMP W-C 1 TAB) PO SCH (10:43)
[2022-07-21] MEDS: SEVELAMER CARBONATE 800 MG TABLET PO SCH ×2 (10:44→17:18)
[2022-07-21] MEDS: LORazepam 1 MG TABLET PO PRN ×2 (10:44→23:34)
[2022-07-21] MEDS: INSULIN GLARGINE 100 UNITS/ML 10 ML VIAL SUBCUT SCH (10:50)
[2022-07-21 12:00] VITALS: BP_SYST 138
[2022-07-21] MEDS: INSULIN LISPRO SLIDING SCALE 100 UNITS/ML VIAL (humaLOG) SUBCUT PRN (13:39)
[2022-07-21 14:17] LABS: CALCIUM 8.4 mg/dL (8.4-11.0); CREATININE 4.05 mg/dL (0.55-1.30); POTASSIUM 4.2 mmol/L (3.5-5.1)
[2022-07-21 14:23] LABS: ALBUMIN 2.4 g/dL (3.4-4.8); TOTAL BILIRUBIN 0.5 mg/dL (0.0-1.0)
[2022-07-21 16:00] VITALS: BP_SYST 147
[2022-07-21 18:56] LABS: HEMOGLOBIN 10.7 g/dL (12.0-16.0); MEAN CORPUSCULAR HEMOGLOBIN 29 pg (27-31); MEAN CORPUSCULAR HGB CONC 32 % (32-36); MEAN CORPUSCULAR VOLUME 90 fL (79.0-98.0); PLATELET COUNT (AUTO) 218 K/uL (130-430); RED BLOOD CELL COUNT(AUTO) 3.68 MIL/uL (4.2-6.2); RED CELL DISTRIBUTION WIDTH 15.3 % (9.0-15.0)
[2022-07-21 18:57] LABS: BASOPHILS % (AUTO) 1.2 % (0.0-2.0); EOSINOPHILS # (AUTO) 0.2 K/uL (0.0-0.4); EOSINOPHILS % (AUTO) 1.9 % (0.0-4.0); LYMPHOCYTES # (AUTO) 1.9 K/uL (1.0-5.5); LYMPHOCYTES % (AUTO) 23.7 % (20.5-51.5); MONOCYTES # (AUTO) 0.6 K/uL (0.0-1.0); MONOCYTES % (AUTO) 6.9 % (1.7-9.3); NEUTROPHILS # (AUTO) 5.4 K/uL (1.8-7.7); NEUTROPHILS % (AUTO) 66.3 % (40.0-70.0)
[2022-07-21 18:58] LABS: BASOPHILS # (AUTO) 0.1 K/uL (0.0-0.2)
[2022-07-21 19:20] LABS: WHITE BLOOD COUNT (AUTO) 8.2 K/uL (4.8-10.8)
[2022-07-21 20:00] VITALS: BP_SYST 129
[2022-07-21] MEDS: PARoxetine HCL 20 MG TABLET PO SCH (20:28)
[2022-07-22 04:00] VITALS: BP_SYST 134
[2022-07-22] MEDS: SEVELAMER CARBONATE 800 MG TABLET PO SCH ×3 (08:00→17:34)
[2022-07-22] MEDS ORDERED: ePHEDrine sulfate 50 MG/ML VIAL IVP ONE (08:45)
[2022-07-22] MEDS ORDERED: CEFAZOLIN 2 GM IVPB PREMIX 50 ML IV ONE (08:45)
[2022-07-22] MEDS ORDERED: HEPARIN SODIUM, PORCINE 10,000 UNITS/ 10 ML VIAL MC ONE (08:45)
[2022-07-22] MEDS ORDERED: NS 1000 ML IV.SOLN IV ONE (08:45)
[2022-07-22] MEDS ORDERED: LIDOCAINE 1% 10 MG/ML, 20 ML MDV INJ ONE (08:45)
[2022-07-22] MEDS ORDERED: PROPOFOL 200MG/ 20ML VIAL (DIPRIVAN) IV ONE (08:45)
[2022-07-22] MEDS ORDERED: fentaNYL CITRATE/PF 100 MCG/2 ML AMP IVP ONE (08:45)
[2022-07-22] MEDS ORDERED: NS IRRIG SOLN 1000 ML IR ONE (08:45)
[2022-07-22] MEDS ORDERED: MIDAZOLAM HCL 5 MG/5 ML VIAL IVP ONE (08:45)
[2022-07-22] MEDS: NEPHROVITE, (FOLIC ACID/VITAMIN B COMP W-C 1 TAB) PO SCH (09:00)
[2022-07-22] MEDS ORDERED: ONDANSETRON HCL 4 MG/2 ML VIAL IVP PRN (10:00)
[2022-07-22] MEDS ORDERED: HYDROmorphone 1 MG/ML INJ. CARTRIDGE IVP PRN (10:00)
[2022-07-22] MEDS ORDERED: NALOXONE HCL 0.4 MG/ML AMP (NARCAN) IVP PRN ×2 (10:00→19:30)
[2022-07-22] MEDS: CARVEDILOL 3.125 MG TABLET (COREG) PO SCH (11:23)
[2022-07-22] MEDS: PARoxetine HCL 20 MG TABLET PO SCH (11:23)
[2022-07-22] MEDS: DULoxetine HCL 30 MG CAPSULE.DR (CYMBALTA) PO SCH (11:23)
[2022-07-22] MEDS: INSULIN LISPRO SLIDING SCALE 100 UNITS/ML VIAL (humaLOG) SUBCUT PRN ×2 (11:26→17:39)
[2022-07-22] MEDS: INSULIN GLARGINE 100 UNITS/ML 10 ML VIAL SUBCUT SCH (11:28)
[2022-07-22 12:24] VITALS: BP_SYST 126
[2022-07-22] MEDS ORDERED: COMMUNICATION ORDER XX ONE (15:15)
[2022-07-22 15:27] VITALS: BP_SYST 110
[2022-07-22] MEDS ORDERED: HEPARIN SODIUM,PORCINE 5,000 UNITS/ML VIAL MC ONE (15:30)
[2022-07-22] MEDS ORDERED: FUROSEMIDE 40 MG TABLET PO SCH (17:00)
[2022-07-22] MEDS ORDERED: HYDROcodone/ACETAMIN 5-325 MG TAB (NORCO/ VICODIN) PO ONE (19:30)
[2022-07-22 19:59] VITALS: BP_SYST 110
[2022-07-22 20:07] VITALS: BP_SYST 110
== END 2022-07-22 20:50 | disposition home or self-care (01) | DRG 673 ==
LOC: SED 23:53 → SMU 07-20 08:51
PROVIDERS: ADMIT Specialist; ATTEND Specialist
PROC: 02HV33Z Insertion of Infusion Device into Superior Vena Cava, Percutaneous Approach (ICD-10-PCS; 2022-07-22)
PROC: B518ZZA Fluoroscopy of Superior Vena Cava, Guidance (ICD-10-PCS; 2022-07-22)
PROC: B548ZZA Ultrasonography of Superior Vena Cava, Guidance (ICD-10-PCS; 2022-07-22)
PROC: 5A1D70Z Performance of Urinary Filtration, Intermittent, Less than 6 Hours Per Day (ICD-10-PCS; 2022-07-22)
PROC: 0JH63XZ Insertion of Tunneled Vascular Access Device into Chest Subcutaneous Tissue and Fascia, Percutaneous Approach (ICD-10-PCS; principal; 2022-07-22 08:48)
DX: T82.42XA Displacement of vascular dialysis catheter, initial encounter (principal); N18.6 End stage renal disease; I12.0 Hypertensive chronic kidney disease with stage 5 chronic kidney disease or end stage renal disease; E78.5 Hyperlipidemia, unspecified; E66.01 Morbid (severe) obesity due to excess calories; Y83.8 Other surgical procedures as the cause of abnormal reaction of the patient, or of later complication, without mention of misadventure at the time of the procedure; E11.22 Type 2 diabetes mellitus with diabetic chronic kidney disease; Z20.822 Contact with and (suspected) exposure to COVID-19; E11.65 Type 2 diabetes mellitus with hyperglycemia; Y92.89 Other specified places as the place of occurrence of the external cause; Z99.2 Dependence on renal dialysis; Z88.5 Allergy status to narcotic agent; Z88.8 Allergy status to other drugs, medicaments and biological substances; Z79.899 Other long term (current) drug therapy; Z68.26 Body mass index [BMI] 26.0-26.9, adult
CPT/HCPCS: 36415; 71045; 76000; 80053; 81000; 82962; 85025; 85610-TC; 87081; 90935; 96372; 99285; C1750; J0690; J1170; J1644; J1815; J2001; J2250; J2704; J3010; J7030

== ENCOUNTER 2023-08-22 12:30 | Emergency (ER) | payer OTHER ==
[~2023-08-22] VITALS: Ht 165.1 cm; Wt 70.3 kg
[~2023-08-22 12:30] MED LIST changes: +FURO-149 PO; +PARO-41 PO; -PARO30TA62 PO; +RENA VITE PO; -SIMV-46 PO; -SODI650T PO
[2023-08-22 13:04] VITALS: BP_SYST 128; PULSE 98; RESP 18; TEMP 97.6; O2SAT 97
[2023-08-22 22:55] LABS: BASOPHILS # (AUTO) 0.2 K/uL (0.0-0.2); BASOPHILS % (AUTO) 1.1 % (0.0-2.0); EOSINOPHILS # (AUTO) 0.3 K/uL (0.0-0.4); EOSINOPHILS % (AUTO) 2.1 % (0.0-4.0); HEMATOCRIT 35.2 % (36-48); HEMOGLOBIN 11.4 g/dL (12.0-16.0); LYMPHOCYTES # (AUTO) 3.1 K/uL (1.0-5.5); LYMPHOCYTES % (AUTO) 22.2 % (20.5-51.5); MEAN CORPUSCULAR HEMOGLOBIN 29 pg (27-31); MEAN CORPUSCULAR HGB CONC 32 % (32-36); MEAN CORPUSCULAR VOLUME 91 fL (79.0-98.0); MONOCYTES # (AUTO) 1.1 K/uL (0.0-1.0); MONOCYTES % (AUTO) 7.8 % (1.7-9.3); NEUTROPHILS # (AUTO) 9.5 K/uL (1.8-7.7); NEUTROPHILS % (AUTO) 66.8 % (40.0-70.0); PLATELET COUNT (AUTO) 257 K/uL (130-430); RED BLOOD CELL COUNT(AUTO) 3.87 MIL/uL (4.2-6.2); WHITE BLOOD COUNT (AUTO) 14.2 K/uL (4.8-10.8)
[2023-08-22 23:14] LABS: ANION GAP 13 (5-15); CALCIUM 8.1 mg/dL (8.4-11.0); CARBON DIOXIDE 22 mmol/L (23-29); CHLORIDE 104 mmol/L (98-107); CREATININE 4.02 mg/dL (0.55-1.30); GFR AFRICAN AMERICAN 14 mL/min (>90); GLUCOSE 242 mg/dL (74-106); POTASSIUM 3.6 mmol/L (3.5-5.1); SODIUM SERUM 139 mmol/L (136-145); UREA NITROGEN, BLOOD 69 mg/dL (8-21)
[2023-08-22 23:15] LABS: INR 1.1 (0.8-1.2)
[2023-08-22 23:18] LABS: GFR NON AFRICAN-AMERICAN 12 mL/min (>90)
[2023-08-22 23:21] LABS: ALANINE AMINOTRANSFERASE 21 U/L (12-78); ALBUMIN 3.1 g/dL (3.4-4.8); ASPARTATE AMINOTRANSFERASE 10 U/L (10-37); PHOSPHORUS 5.1 mg/dL (2.7-4.5); TOTAL BILIRUBIN 0.5 mg/dL (0.0-1.0); TOTAL PROTEIN, SERUM 7.8 g/dL (6.4-8.3)
[2023-08-23 00:50] VITALS: BP_SYST 145; PULSE 90; RESP 20; TEMP 98.6; O2SAT 100
== END 2023-08-23 00:50 | disposition home or self-care (01) ==
LOC: SED 12:30
DX: T82.594A Other mechanical complication of infusion catheter, initial encounter (principal); J44.9 Chronic obstructive pulmonary disease, unspecified; E11.9 Type 2 diabetes mellitus without complications; Z88.2 Allergy status to sulfonamides; Z88.5 Allergy status to narcotic agent; Z88.8 Allergy status to other drugs, medicaments and biological substances; Z79.899 Other long term (current) drug therapy
CPT/HCPCS: 36415; 80053; 83735; 83880; 84100; 84484; 85025; 85610-TC; 85730-TC; 93005; 99284

== ENCOUNTER 2023-08-25 09:32 | Emergency (ER) | payer OTHER ==
[~2023-08-25] VITALS: Ht 165.1 cm; Wt 68.9 kg
[2023-08-25 09:38] VITALS: BP_SYST 145; PULSE 105; RESP 18; TEMP 98.3; O2SAT 98
[2023-08-25 09:53] LABS: BASOPHILS % (AUTO) 0.2 % (0.0-2.0); EOSINOPHILS # (AUTO) 0.2 K/uL (0.0-0.4); HEMATOCRIT 34.9 % (36-48); HEMOGLOBIN 11.3 g/dL (12.0-16.0); LYMPHOCYTES # (AUTO) 2.1 K/uL (1.0-5.5); LYMPHOCYTES % (AUTO) 19.8 % (20.5-51.5); MEAN CORPUSCULAR HEMOGLOBIN 29 pg (27-31); MEAN CORPUSCULAR HGB CONC 32 % (32-36); MEAN CORPUSCULAR VOLUME 90 fL (79.0-98.0); MONOCYTES # (AUTO) 0.7 K/uL (0.0-1.0); MONOCYTES % (AUTO) 6.2 % (1.7-9.3); NEUTROPHILS # (AUTO) 7.7 K/uL (1.8-7.7); NEUTROPHILS % (AUTO) 71.8 % (40.0-70.0); PLATELET COUNT (AUTO) 245 K/uL (130-430); RED BLOOD CELL COUNT(AUTO) 3.86 MIL/uL (4.2-6.2); RED CELL DISTRIBUTION WIDTH 13.9 % (9.0-15.0); WHITE BLOOD COUNT (AUTO) 10.8 K/uL (4.8-10.8)
[2023-08-25 10:09] LABS: INR 1.1 (0.8-1.2)
[2023-08-25 10:11] LABS: ALANINE AMINOTRANSFERASE 19 U/L (12-78); ALBUMIN 2.8 g/dL (3.4-4.8); ANION GAP 13 (5-15); ASPARTATE AMINOTRANSFERASE 13 U/L (10-37); CALCIUM 8.2 mg/dL (8.4-11.0); CARBON DIOXIDE 21 mmol/L (23-29); CHLORIDE 104 mmol/L (98-107); CREATININE 4.22 mg/dL (0.55-1.30); GFR AFRICAN AMERICAN 13 mL/min (>90); GLUCOSE 321 mg/dL (74-106); SODIUM SERUM 138 mmol/L (136-145); TOTAL BILIRUBIN 0.4 mg/dL (0.0-1.0); TOTAL PROTEIN, SERUM 7.3 g/dL (6.4-8.3); UREA NITROGEN, BLOOD 70 mg/dL (8-21)
[2023-08-25 10:13] LABS: CREATINE KINASE, TOTAL 37 U/L (26-192)
[2023-08-25 10:16] LABS: GFR NON AFRICAN-AMERICAN 11 mL/min (>90)
[2023-08-25 10:44] LABS: ACETONE, SERUM NEGATIVE (NEGATIVE)
[2023-08-25 14:42] LABS: BILIRUBIN,URINE NEGATIVE (NEGATIVE); BLOOD, URINE NEGATIVE (NEGATIVE); CLARITY/URINE CLEAR (CLEAR); COLOR,URINE YELLOW (YELLOW); GLUCOSE,URINE 1+ (NEGATIVE); KETONES,URINE NEGATIVE (NEGATIVE); LEUKOCYTE ESTERASE ,URINE NEGATIVE (NEGATIVE); NITRITE, URINE NEGATIVE (NEGATIVE); PH,URINE 5.5 (5.0-8.0); PROTEIN URINE TRACE (NEGATIVE); UROBILINOGEN,URINE 0.2 (0.2-1.0)
[2023-08-25 14:54] LABS: RBC,URINE 0-3 /HPF (0-3); WBC,URINE 0-3 /HPF (0-3)
[2023-08-25 14:55] LABS: BACTERIA,URINE None Seen /HPF (None Seen)
[2023-08-25 19:10] VITALS: BP_SYST 130; PULSE 87; RESP 18; TEMP 98.3; O2SAT 98
== END 2023-08-25 19:10 | disposition home or self-care (01) ==
LOC: SED 09:32
DX: E11.22 Type 2 diabetes mellitus with diabetic chronic kidney disease (principal); N18.9 Chronic kidney disease, unspecified; J44.9 Chronic obstructive pulmonary disease, unspecified; R53.1 Weakness; Z88.2 Allergy status to sulfonamides; Z88.5 Allergy status to narcotic agent; Z88.8 Allergy status to other drugs, medicaments and biological substances; Z79.899 Other long term (current) drug therapy
CPT/HCPCS: 36415; 80053; 81000; 82009; 82550; 83605; 84484; 85025; 85610-TC; 85730-TC; 93005; 99284

== ENCOUNTER 2024-04-16 04:27 | Emergency (ER) | payer OTHER ==
[~2024-04-16] VITALS: Ht 165.1 cm; Wt 68.0 kg
[2024-04-16 04:30] VITALS: BP_SYST 144; PULSE 102; RESP 20; TEMP 98; O2SAT 97
[2024-04-16 06:17] LABS: BASOPHILS # (AUTO) 0.1 K/uL (0.0-0.2); BASOPHILS % (AUTO) 1.2 % (0.0-2.0); EOSINOPHILS # (AUTO) 0.3 K/uL (0.0-0.4); EOSINOPHILS % (AUTO) 2.6 % (0.0-4.0); HEMATOCRIT 27.9 % (36-48); HEMOGLOBIN 9.5 g/dL (12.0-16.0); LYMPHOCYTES # (AUTO) 2.7 K/uL (1.0-5.5); LYMPHOCYTES % (AUTO) 24.8 % (20.5-51.5); MEAN CORPUSCULAR HEMOGLOBIN 29 pg (27-31); MEAN CORPUSCULAR HGB CONC 34 % (32-36); MEAN CORPUSCULAR VOLUME 86 fL (79.0-98.0); MONOCYTES # (AUTO) 0.8 K/uL (0.0-1.0); MONOCYTES % (AUTO) 7.8 % (1.7-9.3); NEUTROPHILS # (AUTO) 6.9 K/uL (1.8-7.7); NEUTROPHILS % (AUTO) 63.6 % (40.0-70.0); PLATELET COUNT (AUTO) 241 K/uL (130-430); RED BLOOD CELL COUNT(AUTO) 3.24 MIL/uL (4.2-6.2); RED CELL DISTRIBUTION WIDTH 14.8 % (9.0-15.0); WHITE BLOOD COUNT (AUTO) 10.9 K/uL (4.8-10.8)
[2024-04-16 06:35] LABS: ALANINE AMINOTRANSFERASE 14 U/L (12-78); ALBUMIN 2.4 g/dL (3.4-4.8); ANION GAP 12 (5-15); ASPARTATE AMINOTRANSFERASE 28 U/L (10-37); BILIRUBIN,DIRECT < 0.1 mg/dL (0.0-0.3); CALCIUM 7.6 mg/dL (8.4-11.0); CARBON DIOXIDE 25 mmol/L (23-29); CHLORIDE 101 mmol/L (98-107); CREATININE 4.58 mg/dL (0.55-1.30); GFR AFRICAN AMERICAN 12 mL/min (>90); GLUCOSE 195 mg/dL (74-106); POTASSIUM 3.9 mmol/L (3.5-5.1); SODIUM SERUM 138 mmol/L (136-145); TOTAL BILIRUBIN 0.6 mg/dL (0.0-1.0); TOTAL PROTEIN, SERUM 7.1 g/dL (6.4-8.3); UREA NITROGEN, BLOOD 51 mg/dL (8-21)
[2024-04-16 06:36] LABS: GFR NON AFRICAN-AMERICAN 10 mL/min (>90)
[2024-04-16 06:45] LABS: INR 1.1 (0.8-1.2); PROTHROMBIN TIME 11.2 SECS (9.5-12.5)
[2024-04-16] MEDS: HYDROcodone/ACETAMIN 5-325 MG TAB (NORCO/ VICODIN) PO ONE (07:52)
[2024-04-16 07:54] LABS: BILIRUBIN,URINE NEGATIVE (NEGATIVE); BLOOD, URINE NEGATIVE (NEGATIVE); CLARITY/URINE CLEAR (CLEAR); COLOR,URINE YELLOW (YELLOW); GLUCOSE,URINE TRACE (NEGATIVE); KETONES,URINE NEGATIVE (NEGATIVE); LEUKOCYTE ESTERASE ,URINE NEGATIVE (NEGATIVE); NITRITE, URINE NEGATIVE (NEGATIVE); PROTEIN URINE TRACE (NEGATIVE); UROBILINOGEN,URINE 0.2 (0.2-1.0)
[2024-04-16 09:34] VITALS: BP_SYST 114; PULSE 96; RESP 17; TEMP 98.3; O2SAT 95
== END 2024-04-16 09:34 | disposition home or self-care (01) ==
LOC: SED 04:27
DX: S50.12XA Contusion of left forearm, initial encounter (principal); S09.90XA Unspecified injury of head, initial encounter; E11.22 Type 2 diabetes mellitus with diabetic chronic kidney disease; N18.9 Chronic kidney disease, unspecified; R10.9 Unspecified abdominal pain; M54.9 Dorsalgia, unspecified; E88.09 Other disorders of plasma-protein metabolism, not elsewhere classified; E11.65 Type 2 diabetes mellitus with hyperglycemia; F32.A Depression, unspecified; Z88.5 Allergy status to narcotic agent; Z88.6 Allergy status to analgesic agent; Z88.8 Allergy status to other drugs, medicaments and biological substances; Z79.899 Other long term (current) drug therapy; W18.39XA Other fall on same level, initial encounter; Y93.89 Activity, other specified; Y92.89 Other specified places as the place of occurrence of the external cause; Y99.8 Other external cause status
CPT/HCPCS: 36415; 70450-TC; 71045; 72100; 73090; 80048; 80076; 81001; 81003; 83690; 83880; 84484; 85025; 85610; 85730; 93005; 99285

== ENCOUNTER 2024-05-13 18:17 | Inpatient (IN) | payer OTHER ==
[~2024-05-13] VITALS: Ht 165.1 cm; Wt 67.3 kg
[2024-05-13 18:25] VITALS: BP_SYST 143; PULSE 103; RESP 18; TEMP 97.1; O2SAT 98
[2024-05-13] MEDS: HYDROcodone/ACETAMIN 7.5-325 MG TAB ONE (19:42)
[2024-05-13 19:43] LABS: BASOPHILS # (AUTO) 0.3 K/uL (0.0-0.2); BASOPHILS % (AUTO) 1.9 % (0.0-2.0); EOSINOPHILS # (AUTO) 0.1 K/uL (0.0-0.4); EOSINOPHILS % (AUTO) 0.6 % (0.0-4.0); HEMATOCRIT 33.5 % (36-48); HEMOGLOBIN 11.1 g/dL (12.0-16.0); LYMPHOCYTES # (AUTO) 2.3 K/uL (1.0-5.5); LYMPHOCYTES % (AUTO) 15.3 % (20.5-51.5); MEAN CORPUSCULAR HEMOGLOBIN 28 pg (27-31); MEAN CORPUSCULAR HGB CONC 33 % (32-36); MEAN CORPUSCULAR VOLUME 86 fL (79.0-98.0); MONOCYTES % (AUTO) 6.4 % (1.7-9.3); NEUTROPHILS # (AUTO) 11.5 K/uL (1.8-7.7); NEUTROPHILS % (AUTO) 75.8 % (40.0-70.0); PLATELET COUNT (AUTO) 262 K/uL (130-430); RED BLOOD CELL COUNT(AUTO) 3.92 MIL/uL (4.2-6.2); RED CELL DISTRIBUTION WIDTH 15.9 % (9.0-15.0); WHITE BLOOD COUNT (AUTO) 15.1 K/uL (4.8-10.8)
[2024-05-13] MEDS: HYDROcodone/ACETAMIN 7.5-325 MG TAB PO ONE (19:46)
[2024-05-13 19:47] LABS: CALCIUM 8.5 mg/dL (8.4-11.0); CREATININE 4.86 mg/dL (0.55-1.30); POTASSIUM 3.1 mmol/L (3.5-5.1)
[2024-05-13] MEDS ORDERED: ACETAMINOPHEN 325 MG TABLET PO PRN ×2 (21:45→22:00)
[2024-05-13] MEDS ORDERED: HYDROcodone/ACETAMIN 10-325 MG TAB PO PRN (21:45)
[2024-05-13] MEDS ORDERED: HYDROcodone/ACETAMIN 5-325 MG TAB (NORCO/ VICODIN) PO PRN ×2 (21:45→22:00)
[2024-05-13] MEDS ORDERED: ONDANSETRON HCL 4 MG/2 ML VIAL IVP PRN (22:00)
[2024-05-13] MEDS ORDERED: LORazepam 1 MG TABLET PO PRN (22:00)
[2024-05-13] MEDS ORDERED: NALOXONE HCL 0.4 MG/ML AMP (NARCAN) IVP PRN ×2 (22:00)
[2024-05-13] MEDS: NORMAL SALINE 5 ML DISP.SYRIN IVF SCH (23:23)
[2024-05-13] MEDS: POTASSIUM CHLORIDE 20 MEQ TABLET.ER PO ONE (23:25)
[2024-05-13 23:41] VITALS: BP_SYST 127; PULSE 103; RESP 18; TEMP 97.6; O2SAT 97
[2024-05-14] VITALS (7 sets, daily range): BP systolic 114–127; PULSE 79–103; RESP 17–19; TEMP 96.9–98.6; O2SAT 97–99
[2024-05-14 08:17] LABS: BASOPHILS # (AUTO) 0.1 K/uL (0.0-0.2); BASOPHILS % (AUTO) 1.1 % (0.0-2.0); EOSINOPHILS # (AUTO) 0.3 K/uL (0.0-0.4); HEMATOCRIT 34.8 % (36-48); HEMOGLOBIN 11.1 g/dL (12.0-16.0); LYMPHOCYTES # (AUTO) 3.5 K/uL (1.0-5.5); LYMPHOCYTES % (AUTO) 27.8 % (20.5-51.5); MEAN CORPUSCULAR HEMOGLOBIN 28 pg (27-31); MEAN CORPUSCULAR HGB CONC 32 % (32-36); MEAN CORPUSCULAR VOLUME 88 fL (79.0-98.0); MONOCYTES % (AUTO) 7.6 % (1.7-9.3); NEUTROPHILS # (AUTO) 7.8 K/uL (1.8-7.7); NEUTROPHILS % (AUTO) 61.5 % (40.0-70.0); PLATELET COUNT (AUTO) 267 K/uL (130-430); RED BLOOD CELL COUNT(AUTO) 3.98 MIL/uL (4.2-6.2); RED CELL DISTRIBUTION WIDTH 15.8 % (9.0-15.0); WHITE BLOOD COUNT (AUTO) 12.6 K/uL (4.8-10.8)
[2024-05-14] MEDS: NEPHROVITE, (FOLIC ACID/VITAMIN B COMP W-C 1 TAB) PO SCH (08:18)
[2024-05-14] MEDS: PARoxetine HCL 20 MG TABLET PO SCH (08:18)
[2024-05-14] MEDS: CARVEDILOL 3.125 MG TABLET (COREG) PO SCH (08:19)
[2024-05-14] MEDS: HYDROcodone/ACETAMIN 10-325 MG TAB PO PRN (08:20)
[2024-05-14] MEDS: DULoxetine HCL 30 MG CAPSULE.DR (CYMBALTA) PO SCH (08:20)
[2024-05-14 08:23] LABS: ALBUMIN 2.6 g/dL (3.4-4.8); CALCIUM 8.9 mg/dL (8.4-11.0); CREATININE 5.25 mg/dL (0.55-1.30); PHOSPHORUS 6.5 mg/dL (2.7-4.5); POTASSIUM 3.8 mmol/L (3.5-5.1); TOTAL BILIRUBIN 0.6 mg/dL (0.0-1.0); TOTAL PROTEIN, SERUM 7.9 g/dL (6.4-8.3)
[2024-05-14] MEDS: LORazepam 2 MG/ML VIAL IVP PRN (18:46)
[2024-05-14] MEDS ORDERED: HEPARIN SODIUM,PORCINE 5,000 UNITS/ML VIAL MC ONE (19:30)
[2024-05-15] VITALS (7 sets, daily range): BP systolic 116–137; PULSE 74–108; RESP 18–22; TEMP 97–98.5; O2SAT 94–99
[2024-05-15 05:45] LABS: BASOPHILS # (AUTO) 0.1 K/uL (0.0-0.2); EOSINOPHILS # (AUTO) 0.2 K/uL (0.0-0.4); EOSINOPHILS % (AUTO) 1.7 % (0.0-4.0); HEMATOCRIT 33.4 % (36-48); HEMOGLOBIN 10.7 g/dL (12.0-16.0); LYMPHOCYTES # (AUTO) 2.4 K/uL (1.0-5.5); LYMPHOCYTES % (AUTO) 20.5 % (20.5-51.5); MEAN CORPUSCULAR HEMOGLOBIN 28 pg (27-31); MEAN CORPUSCULAR HGB CONC 32 % (32-36); MEAN CORPUSCULAR VOLUME 87 fL (79.0-98.0); MONOCYTES # (AUTO) 0.9 K/uL (0.0-1.0); NEUTROPHILS % (AUTO) 68.8 % (40.0-70.0); PLATELET COUNT (AUTO) 241 K/uL (130-430); RED BLOOD CELL COUNT(AUTO) 3.86 MIL/uL (4.2-6.2); RED CELL DISTRIBUTION WIDTH 15.9 % (9.0-15.0); WHITE BLOOD COUNT (AUTO) 11.6 K/uL (4.8-10.8)
[2024-05-15 05:57] LABS: ALBUMIN 2.5 g/dL (3.4-4.8); CALCIUM 8.5 mg/dL (8.4-11.0); CREATININE 4.12 mg/dL (0.55-1.30); POTASSIUM 3.4 mmol/L (3.5-5.1); TOTAL BILIRUBIN 0.7 mg/dL (0.0-1.0); TOTAL PROTEIN, SERUM 7.6 g/dL (6.4-8.3)
[2024-05-15 10:05] LABS: HEMOGLOBIN A1C 10.01 % (<5.7)
[2024-05-15] MEDS ORDERED: GLUCOSE (DEXTROSE) ORAL GEL -Adults PO PRN (11:00)
[2024-05-15] MEDS ORDERED: DEXTROSE 50% JECT 50 ML DISP.SYRIN IVP PRN (11:00)
[2024-05-15] MEDS: INSULIN REGULAR, HUMAN 100 UNITS/ML, 3 ML VIAL (humuLIN R) SUBCUT PRN (11:29)
[2024-05-15] MEDS: FUROSEMIDE 40 MG TABLET PO SCH (16:30)
[2024-05-15] MEDS: INSULIN GLARGINE 100 UNITS/ML, 10 ML VIAL SUBCUT SCH (21:38)
[2024-05-16] VITALS (8 sets, daily range): BP systolic 98–140; PULSE 60–103; RESP 15–22; TEMP 97.7–98.1; O2SAT 91–99
[2024-05-16 07:20] LABS: BASOPHILS # (AUTO) 0.1 K/uL (0.0-0.2); BASOPHILS % (AUTO) 1.3 % (0.0-2.0); EOSINOPHILS # (AUTO) 0.2 K/uL (0.0-0.4); EOSINOPHILS % (AUTO) 1.7 % (0.0-4.0); HEMATOCRIT 31.7 % (36-48); HEMOGLOBIN 10.2 g/dL (12.0-16.0); LYMPHOCYTES # (AUTO) 3.2 K/uL (1.0-5.5); LYMPHOCYTES % (AUTO) 30.9 % (20.5-51.5); MEAN CORPUSCULAR HEMOGLOBIN 28 pg (27-31); MEAN CORPUSCULAR HGB CONC 32 % (32-36); MEAN CORPUSCULAR VOLUME 88 fL (79.0-98.0); MONOCYTES # (AUTO) 1.1 K/uL (0.0-1.0); MONOCYTES % (AUTO) 10.7 % (1.7-9.3); NEUTROPHILS # (AUTO) 5.7 K/uL (1.8-7.7); NEUTROPHILS % (AUTO) 55.4 % (40.0-70.0); PLATELET COUNT (AUTO) 247 K/uL (130-430); RED BLOOD CELL COUNT(AUTO) 3.61 MIL/uL (4.2-6.2); WHITE BLOOD COUNT (AUTO) 10.3 K/uL (4.8-10.8)
[2024-05-16 08:01] LABS: ALBUMIN 2.5 g/dL (3.4-4.8); CALCIUM 8.6 mg/dL (8.4-11.0); CREATININE 4.74 mg/dL (0.55-1.30); TOTAL BILIRUBIN 0.6 mg/dL (0.0-1.0); TOTAL PROTEIN, SERUM 7.5 g/dL (6.4-8.3)
[2024-05-16 08:09] LABS: POTASSIUM 2.9 mmol/L (3.5-5.1)
[2024-05-16] MEDS: POTASSIUM CHLORIDE 40 MEQ, LIDOCAINE JECT 2% PF 100 MG 50 MG in NS 250 ML IV ONE (11:33)
[2024-05-16] MEDS: HEPARIN SODIUM,PORCINE 5,000 UNITS/ML VIAL MC ONE (14:15)
[2024-05-16] MEDS ORDERED: INSU100I75 SUBCUT (16:08)
[2024-05-16] MEDS ORDERED: SSNOVOLOG SUBCUT (16:12)
== END 2024-05-16 21:50 | disposition home health service (06) | DRG 551 ==
LOC: SED 18:17 → SMU 21:09
PROVIDERS: ADMIT Preventive Medicine Preventive Medicine/Occupational Environmental Medicine; ATTEND Specialist
PROC: 5A1D70Z Performance of Urinary Filtration, Intermittent, Less than 6 Hours Per Day (ICD-10-PCS; principal; 2024-05-14)
PROC: 5A1D70Z Performance of Urinary Filtration, Intermittent, Less than 6 Hours Per Day (ICD-10-PCS; 2024-05-16)
DX: S32.018A Other fracture of first lumbar vertebra, initial encounter for closed fracture (principal); N18.6 End stage renal disease; I13.2 Hypertensive heart and chronic kidney disease with heart failure and with stage 5 chronic kidney disease, or end stage renal disease; E87.6 Hypokalemia; E83.39 Other disorders of phosphorus metabolism; D64.9 Anemia, unspecified; E11.65 Type 2 diabetes mellitus with hyperglycemia; J44.9 Chronic obstructive pulmonary disease, unspecified; W18.39XA Other fall on same level, initial encounter; I50.9 Heart failure, unspecified; Y93.89 Activity, other specified; Y92.89 Other specified places as the place of occurrence of the external cause; Z79.899 Other long term (current) drug therapy; Y99.8 Other external cause status
CPT/HCPCS: 36415; 71045; 72131; 80048; 80053; 82948; 83037; 83735; 83880; 84100; 85025; 87081; 90935; 90937; 93005; 97110-GP; 97116-GP; 97530-GP; 97760-GP; 99285; J1644; J1815; J2060; J3480; J7050

== ENCOUNTER 2024-05-20 15:47 | Observation (INO) | payer OTHER ==
[~2024-05-20] VITALS: Ht 175.3 cm; Wt 69.1 kg
[~2024-05-20 15:47] MED LIST changes: +INSU100I75 SUBCUT; +SSNOVOLOG SUBCUT
[2024-05-20 15:50] VITALS: BP_SYST 115; PULSE 95; RESP 18; TEMP 97.6; O2SAT 97
[2024-05-20 16:22] LABS: BASOPHILS # (AUTO) 0.2 K/uL (0.0-0.2); BASOPHILS % (AUTO) 1.3 % (0.0-2.0); EOSINOPHILS # (AUTO) 0.2 K/uL (0.0-0.4); EOSINOPHILS % (AUTO) 1.6 % (0.0-4.0); HEMATOCRIT 33.5 % (36-48); HEMOGLOBIN 10.9 g/dL (12.0-16.0); LYMPHOCYTES # (AUTO) 2.3 K/uL (1.0-5.5); LYMPHOCYTES % (AUTO) 17.5 % (20.5-51.5); MEAN CORPUSCULAR HEMOGLOBIN 28 pg (27-31); MEAN CORPUSCULAR HGB CONC 33 % (32-36); MEAN CORPUSCULAR VOLUME 87 fL (79.0-98.0); MONOCYTES # (AUTO) 0.9 K/uL (0.0-1.0); MONOCYTES % (AUTO) 7.3 % (1.7-9.3); NEUTROPHILS # (AUTO) 9.4 K/uL (1.8-7.7); NEUTROPHILS % (AUTO) 72.3 % (40.0-70.0); PLATELET COUNT (AUTO) 311 K/uL (130-430); RED BLOOD CELL COUNT(AUTO) 3.84 MIL/uL (4.2-6.2); RED CELL DISTRIBUTION WIDTH 17.2 % (9.0-15.0)
[2024-05-20 16:32] LABS: INR 1.1 (0.8-1.2); PROTHROMBIN TIME 11.2 SECS (9.5-12.5)
[2024-05-20 16:34] LABS: ALANINE AMINOTRANSFERASE 21 U/L (12-78); ALBUMIN 2.8 g/dL (3.4-4.8); ANION GAP 20 (5-15); ASPARTATE AMINOTRANSFERASE 13 U/L (10-37); CALCIUM 8.3 mg/dL (8.4-11.0); CARBON DIOXIDE 17 mmol/L (23-29); CHLORIDE 100 mmol/L (98-107); CREATININE 4.94 mg/dL (0.55-1.30); GFR AFRICAN AMERICAN 11 mL/min (>90); GLUCOSE 206 mg/dL (74-106); POTASSIUM 4.2 mmol/L (3.5-5.1); SODIUM SERUM 137 mmol/L (136-145); TOTAL BILIRUBIN 0.5 mg/dL (0.0-1.0); TOTAL PROTEIN, SERUM 7.9 g/dL (6.4-8.3); UREA NITROGEN, BLOOD 83 mg/dL (8-21)
[2024-05-20 16:38] LABS: GFR NON AFRICAN-AMERICAN 9 mL/min (>90)
[2024-05-20 16:42] LABS: BILIRUBIN,DIRECT 0.1 mg/dL (0.0-0.3); CREATINE KINASE, TOTAL 43 U/L (26-192)
[2024-05-20 18:12] LABS: BILIRUBIN,URINE NEGATIVE (NEGATIVE); BLOOD, URINE NEGATIVE (NEGATIVE); CLARITY/URINE HAZY (CLEAR); COLOR,URINE YELLOW (YELLOW); GLUCOSE,URINE NEGATIVE (NEGATIVE); KETONES,URINE NEGATIVE (NEGATIVE); LEUKOCYTE ESTERASE ,URINE 1+ (NEGATIVE); NITRITE, URINE NEGATIVE (NEGATIVE); PH,URINE 5.5 (5.0-8.0); PROTEIN URINE TRACE (NEGATIVE); UROBILINOGEN,URINE 0.2 (0.2-1.0)
[2024-05-20 18:13] LABS: BACTERIA,URINE FEW /HPF (None Seen); MUCUS,URINE None Seen /LPF (None Seen); RBC,URINE 0-3 /HPF (0-3)
[2024-05-20] MEDS ORDERED: HYDROcodone/ACETAMIN 5-325 MG TAB (NORCO/ VICODIN) ONE (18:17)
[2024-05-20] MEDS: MORPHINE 2 MG/ML INJ. SYRINGE IM ONE (18:20)
[2024-05-20] MEDS ORDERED: ONDANSETRON HCL 4 MG/2 ML VIAL IVP PRN ×2 (19:00→23:45)
[2024-05-20] MEDS ORDERED: ATOR40TA68 PO (19:12)
[2024-05-20] MEDS ORDERED: DULO60CA65 PO (19:12)
[2024-05-20] MEDS ORDERED: POTA-195 (19:12)
[2024-05-20] MEDS ORDERED: hydrALAZINE HCL 20 MG/ML VIAL IVP PRN (19:15)
[2024-05-20] MEDS ORDERED: HYDROcodone/ACETAMIN 5-325 MG TAB (NORCO/ VICODIN) PO PRN ×2 (19:15→23:45)
[2024-05-20 21:30] VITALS: BP_SYST 125; PULSE 98; RESP 20; TEMP 97; O2SAT 95
[2024-05-20] MEDS ORDERED: ACETAMINOPHEN 325 MG TABLET PO PRN (23:45)
[2024-05-20] MEDS ORDERED: ALBUTEROL SULFATE 0.083% 2.5 MG/3 ML VIAL.NEB INH PRN (23:45)
[2024-05-20] MEDS ORDERED: GLUCOSE (DEXTROSE) ORAL GEL -Adults PO PRN (23:45)
[2024-05-20] MEDS ORDERED: DEXTROSE 50% JECT 50 ML DISP.SYRIN IVP PRN (23:45)
[2024-05-20] MEDS ORDERED: NALOXONE HCL 0.4 MG/ML AMP (NARCAN) IVP PRN (23:45)
[2024-05-21] VITALS (7 sets, daily range): BP systolic 121–128; PULSE 57–100; RESP 16–17; TEMP 96.4–98.3; O2SAT 94–98
[2024-05-21] MEDS: HYDROcodone/ACETAMIN 10-325 MG TAB PO PRN (01:35)
[2024-05-21 06:09] LABS: BASOPHILS # (AUTO) 0.1 K/uL (0.0-0.2); EOSINOPHILS # (AUTO) 0.2 K/uL (0.0-0.4); EOSINOPHILS % (AUTO) 1.5 % (0.0-4.0); HEMATOCRIT 32.9 % (36-48); HEMOGLOBIN 10.4 g/dL (12.0-16.0); LYMPHOCYTES # (AUTO) 3.2 K/uL (1.0-5.5); LYMPHOCYTES % (AUTO) 26.3 % (20.5-51.5); MEAN CORPUSCULAR HEMOGLOBIN 28 pg (27-31); MEAN CORPUSCULAR HGB CONC 32 % (32-36); MEAN CORPUSCULAR VOLUME 88 fL (79.0-98.0); MONOCYTES # (AUTO) 0.9 K/uL (0.0-1.0); MONOCYTES % (AUTO) 7.4 % (1.7-9.3); NEUTROPHILS # (AUTO) 7.8 K/uL (1.8-7.7); NEUTROPHILS % (AUTO) 63.8 % (40.0-70.0); PLATELET COUNT (AUTO) 320 K/uL (130-430); RED BLOOD CELL COUNT(AUTO) 3.72 MIL/uL (4.2-6.2); RED CELL DISTRIBUTION WIDTH 17.1 % (9.0-15.0); WHITE BLOOD COUNT (AUTO) 12.2 K/uL (4.8-10.8)
[2024-05-21 06:23] LABS: ALBUMIN 2.7 g/dL (3.4-4.8); CALCIUM 8.5 mg/dL (8.4-11.0); CREATININE 4.82 mg/dL (0.55-1.30); POTASSIUM 3.3 mmol/L (3.5-5.1); TOTAL BILIRUBIN 0.5 mg/dL (0.0-1.0); TOTAL PROTEIN, SERUM 7.8 g/dL (6.4-8.3)
[2024-05-21] MEDS: INSULIN REGULAR, HUMAN 100 UNITS/ML, 3 ML VIAL (humuLIN R) SUBCUT PRN (11:57)
[2024-05-21] MEDS: INSULIN GLARGINE 100 UNITS/ML, 10 ML VIAL SUBCUT SCH (22:28)
[2024-05-21] MEDS: POTASSIUM CHLORIDE 20 MEQ/PKT PACKET PO ONE (22:28)
[2024-05-22] VITALS (7 sets, daily range): BP systolic 117–130; PULSE 77–101; RESP 15–18; TEMP 97.2–98.8; O2SAT 93–99
[2024-05-22 06:14] LABS: BASOPHILS # (AUTO) 0.2 K/uL (0.0-0.2); BASOPHILS % (AUTO) 1.3 % (0.0-2.0); EOSINOPHILS # (AUTO) 0.1 K/uL (0.0-0.4); EOSINOPHILS % (AUTO) 0.9 % (0.0-4.0); HEMATOCRIT 32.3 % (36-48); HEMOGLOBIN 10.4 g/dL (12.0-16.0); LYMPHOCYTES # (AUTO) 3.5 K/uL (1.0-5.5); LYMPHOCYTES % (AUTO) 27.5 % (20.5-51.5); MEAN CORPUSCULAR HEMOGLOBIN 28 pg (27-31); MEAN CORPUSCULAR HGB CONC 32 % (32-36); MEAN CORPUSCULAR VOLUME 87 fL (79.0-98.0); MONOCYTES # (AUTO) 1.4 K/uL (0.0-1.0); NEUTROPHILS # (AUTO) 7.6 K/uL (1.8-7.7); NEUTROPHILS % (AUTO) 59.3 % (40.0-70.0); PLATELET COUNT (AUTO) 298 K/uL (130-430); WHITE BLOOD COUNT (AUTO) 12.8 K/uL (4.8-10.8)
[2024-05-22 06:55] LABS: CALCIUM 8.5 mg/dL (8.4-11.0); CREATININE 3.25 mg/dL (0.55-1.30); POTASSIUM 3.3 mmol/L (3.5-5.1)
[2024-05-22] MEDS ORDERED: PARoxetine HCL 20 MG TABLET PO SCH (09:00)
[2024-05-22] MEDS ORDERED: CARVEDILOL 3.125 MG TABLET (COREG) PO SCH (09:00)
[2024-05-22] MEDS: PARoxetine HCL 20 MG TABLET PO SCH (09:12)
[2024-05-22] MEDS: CARVEDILOL 3.125 MG TABLET (COREG) PO SCH (09:14)
[2024-05-22] MEDS ORDERED: ATORVASTATIN 20 MG TABLET PO SCH ×2 (21:00)
== END 2024-05-22 19:07 | disposition home or self-care (01) ==
LOC: SED 15:47 → SMU 19:15 → INTOOBSV 19:15 → SMU 20:29
PROVIDERS: ADMIT Family Medicine; ATTEND Family Medicine
DX: I13.2 Hypertensive heart and chronic kidney disease with heart failure and with stage 5 chronic kidney disease, or end stage renal disease (principal); E11.22 Type 2 diabetes mellitus with diabetic chronic kidney disease; N18.6 End stage renal disease; I50.9 Heart failure, unspecified; R29.6 Repeated falls; M54.50 Low back pain, unspecified; F32.A Depression, unspecified; G47.00 Insomnia, unspecified; F41.1 Generalized anxiety disorder; J44.9 Chronic obstructive pulmonary disease, unspecified; K21.9 Gastro-esophageal reflux disease without esophagitis; F03.90 Unspecified dementia, unspecified severity, without behavioral disturbance, psychotic disturbance, mood disturbance, and anxiety; Z99.2 Dependence on renal dialysis; Z88.5 Allergy status to narcotic agent; Z88.8 Allergy status to other drugs, medicaments and biological substances; Z79.899 Other long term (current) drug therapy; Z79.4 Long term (current) use of insulin; W19.XXXA Unspecified fall, initial encounter; Y93.89 Activity, other specified; Y92.89 Other specified places as the place of occurrence of the external cause; Y99.8 Other external cause status
CPT/HCPCS: 80076; 80048 ×2; 81000; 81001; 82550; 85025 ×3; 85610; 85730; 87086; 84484; 36415 ×3; 93005; 71045; 72131; 99285; 82948 ×3; 83605; 96372 ×2; 80053; 87081; 97110 ×2; 97530 ×2; 97162; 97116; G0378 ×3; J1815 ×2; 81015

== ENCOUNTER 2024-06-10 23:18 | Inpatient (IN) | payer OTHER ==
[~2024-06-10] VITALS: Ht 165.1 cm; Wt 69.4 kg
[~2024-06-10 23:18] MED LIST changes: +DULO60CA65 PO
[2024-06-10 23:34] VITALS: BP_SYST 130; PULSE 110; RESP 16; TEMP 97.5; O2SAT 98
[2024-06-11] VITALS (9 sets, daily range): BP systolic 94–122; PULSE 87–110; RESP 15–20; TEMP 96.8–98.6; O2SAT 94–98
[2024-06-11 00:55] LABS: HEMOGLOBIN 9.7 g/dL (12.0-16.0); RED CELL DISTRIBUTION WIDTH 17.3 % (9.0-15.0)
[2024-06-11 01:04] LABS: BASOPHILS # (AUTO) 0.1 K/uL (0.0-0.2); BASOPHILS % (AUTO) 1.2 % (0.0-2.0); EOSINOPHILS # (AUTO) 0.2 K/uL (0.0-0.4); EOSINOPHILS % (AUTO) 1.5 % (0.0-4.0); HEMATOCRIT 28.6 % (36-48); LYMPHOCYTES # (AUTO) 2.3 K/uL (1.0-5.5); LYMPHOCYTES % (AUTO) 20.2 % (20.5-51.5); MEAN CORPUSCULAR HEMOGLOBIN 29 pg (27-31); MEAN CORPUSCULAR HGB CONC 34 % (32-36); MEAN CORPUSCULAR VOLUME 86 fL (79.0-98.0); MONOCYTES # (AUTO) 1.1 K/uL (0.0-1.0); MONOCYTES % (AUTO) 9.4 % (1.7-9.3); NEUTROPHILS # (AUTO) 7.6 K/uL (1.8-7.7); NEUTROPHILS % (AUTO) 67.7 % (40.0-70.0); PLATELET COUNT (AUTO) 259 K/uL (130-430); RED BLOOD CELL COUNT(AUTO) 3.33 MIL/uL (4.2-6.2); WHITE BLOOD COUNT (AUTO) 11.2 K/uL (4.8-10.8)
[2024-06-11 01:12] LABS: ALANINE AMINOTRANSFERASE 16 U/L (12-78); ALBUMIN 2.7 g/dL (3.4-4.8); ANION GAP 16 (5-15); ASPARTATE AMINOTRANSFERASE 10 U/L (10-37); CARBON DIOXIDE 18 mmol/L (23-29); CHLORIDE 104 mmol/L (98-107); CREATININE 5.04 mg/dL (0.55-1.30); GFR AFRICAN AMERICAN 11 mL/min (>90); GLUCOSE 162 mg/dL (74-106); POTASSIUM 3.2 mmol/L (3.5-5.1); SODIUM SERUM 138 mmol/L (136-145); TOTAL BILIRUBIN 0.5 mg/dL (0.0-1.0); TOTAL PROTEIN, SERUM 6.9 g/dL (6.4-8.3); UREA NITROGEN, BLOOD 81 mg/dL (8-21)
[2024-06-11 01:14] LABS: BILIRUBIN,DIRECT 0.1 mg/dL (0.0-0.3)
[2024-06-11 01:17] LABS: GFR NON AFRICAN-AMERICAN 9 mL/min (>90)
[2024-06-11] MEDS ORDERED: ONDANSETRON HCL 4 MG/2 ML VIAL IVP PRN (02:00)
[2024-06-11] MEDS ORDERED: MORPHINE 2 MG/ML INJ. SYRINGE IVP PRN (02:00)
[2024-06-11] MEDS ORDERED: CALC667T6 PO (02:16)
[2024-06-11] MEDS ORDERED: LIP40 PO (02:16)
[2024-06-11] MEDS ORDERED: FOLI0.8T53 PO (02:16)
[2024-06-11] MEDS ORDERED: POTA-178 PO (02:16)
[2024-06-11] MEDS ORDERED: traMADol HCL HCL 50 MG TABLET (ULTRAM) PO SCH (04:00)
[2024-06-11] MEDS: traMADol HCL HCL 50 MG TABLET (ULTRAM) PO PRN (05:10)
[2024-06-11] MEDS: POTASSIUM CHLORIDE 20 MEQ TABLET.ER PO ONE (11:44)
[2024-06-11] MEDS: ALTEPLASE 2 MG VIAL MC ONE (16:57)
[2024-06-12 08:06] LABS: HEPATITIS A AB, IgM Negative (Negative); HEPATITIS B CORE AB, IgM Negative (Negative); HEPATITIS B SURFACE AG Negative (Negative); HEPATITIS C VIRUS AB Non Reactive (Non Reactive)
[2024-06-13 12:07] LABS: QUANTIFERON TB GOLD Negative (Negative)
== END 2024-06-11 20:15 | disposition home or self-care (01) | DRG 682 ==
LOC: SED 23:18 → SMU 06-11 01:58
PROVIDERS: ADMIT Specialist; ATTEND Specialist
PROC: 5A1D70Z Performance of Urinary Filtration, Intermittent, Less than 6 Hours Per Day (ICD-10-PCS; principal; 2024-06-11)
DX: I12.0 Hypertensive chronic kidney disease with stage 5 chronic kidney disease or end stage renal disease (principal); N18.6 End stage renal disease; F33.9 Major depressive disorder, recurrent, unspecified; D64.9 Anemia, unspecified; Z79.899 Other long term (current) drug therapy; Z91.158 Patient's noncompliance with renal dialysis for other reason
CPT/HCPCS: 36415; 71045; 80048; 80074; 80076; 83880; 84484; 85025; 86480; 87081; 90935; 93005; 97530-GP; 99285; J2997

== ENCOUNTER 2024-07-13 14:06 | Inpatient (IN) | payer OTHER ==
[~2024-07-13] VITALS: Ht 165.1 cm; Wt 69.4 kg
[~2024-07-13 14:06] MED LIST changes: +CALC667T6 PO; +FOLI0.8T53 PO; +LIP40 PO; +POTA-178 PO
[2024-07-13 14:23] VITALS: BP_SYST 129; PULSE 89; RESP 16; TEMP 97.7; O2SAT 96
[2024-07-13 15:37] LABS: BASOPHILS # (AUTO) 0.1 K/uL (0.0-0.2); BASOPHILS % (AUTO) 0.8 % (0.0-2.0); EOSINOPHILS # (AUTO) 0.1 K/uL (0.0-0.4); EOSINOPHILS % (AUTO) 0.6 % (0.0-4.0); HEMATOCRIT 24.6 % (36-48); HEMOGLOBIN 8.2 g/dL (12.0-16.0); LYMPHOCYTES # (AUTO) 2.1 K/uL (1.0-5.5); LYMPHOCYTES % (AUTO) 16.4 % (20.5-51.5); MEAN CORPUSCULAR HEMOGLOBIN 29 pg (27-31); MEAN CORPUSCULAR HGB CONC 33 % (32-36); MEAN CORPUSCULAR VOLUME 87 fL (79.0-98.0); MONOCYTES # (AUTO) 0.9 K/uL (0.0-1.0); MONOCYTES % (AUTO) 7.1 % (1.7-9.3); NEUTROPHILS # (AUTO) 9.5 K/uL (1.8-7.7); NEUTROPHILS % (AUTO) 75.1 % (40.0-70.0); PLATELET COUNT (AUTO) 225 K/uL (130-430); RED BLOOD CELL COUNT(AUTO) 2.82 MIL/uL (4.2-6.2); RED CELL DISTRIBUTION WIDTH 14.7 % (9.0-15.0); WHITE BLOOD COUNT (AUTO) 12.7 K/uL (4.8-10.8)
[2024-07-13 15:47] LABS: ALANINE AMINOTRANSFERASE 14 U/L (12-78); ALBUMIN 2.6 g/dL (3.4-4.8); ANION GAP 21 (5-15); ASPARTATE AMINOTRANSFERASE 12 U/L (10-37); CALCIUM 7.6 mg/dL (8.4-11.0); CARBON DIOXIDE 13 mmol/L (23-29); CHLORIDE 103 mmol/L (98-107); CREATININE 5.11 mg/dL (0.55-1.30); GFR AFRICAN AMERICAN 11 mL/min (>90); GLUCOSE 218 mg/dL (74-106); POTASSIUM 3.1 mmol/L (3.5-5.1); SODIUM SERUM 137 mmol/L (136-145); TOTAL BILIRUBIN 0.5 mg/dL (0.0-1.0); TOTAL PROTEIN, SERUM 6.9 g/dL (6.4-8.3); UREA NITROGEN, BLOOD 86 mg/dL (8-21)
[2024-07-13 15:49] LABS: GFR NON AFRICAN-AMERICAN 9 mL/min (>90)
[2024-07-13 15:54] LABS: BILIRUBIN,DIRECT 0.1 mg/dL (0.0-0.3); INR 1.1 (0.8-1.2); PROTHROMBIN TIME 11.7 SECS (9.5-12.5)
[2024-07-13 16:19] LABS: BILIRUBIN,URINE NEGATIVE (NEGATIVE); BLOOD, URINE NEGATIVE (NEGATIVE); CLARITY/URINE CLEAR (CLEAR); COLOR,URINE YELLOW (YELLOW); GLUCOSE,URINE NEGATIVE (NEGATIVE); KETONES,URINE NEGATIVE (NEGATIVE); LEUKOCYTE ESTERASE ,URINE TRACE (NEGATIVE); NITRITE, URINE NEGATIVE (NEGATIVE); PROTEIN URINE TRACE (NEGATIVE); UROBILINOGEN,URINE 0.2 (0.2-1.0)
[2024-07-13] MEDS ORDERED: GABA-529 PO (16:27)
[2024-07-13] MEDS ORDERED: CIPR250T4 PO (16:27)
[2024-07-13] MEDS ORDERED: ATOR40TA68 PO (16:27)
[2024-07-13] MEDS ORDERED: POTA (16:27)
[2024-07-13] MEDS ORDERED: FURO40TA5 PO (16:27)
[2024-07-13] MEDS ORDERED: HYDR-3917 PO (16:27)
[2024-07-13] MEDS ORDERED: LORAZEPAM (16:27)
[2024-07-13 16:29] LABS: BACTERIA,URINE FEW /HPF (None Seen); MUCUS,URINE None Seen /LPF (None Seen); RBC,URINE 0-3 /HPF (0-3)
[2024-07-13] MEDS: cefTRIAXone 1 GM IVPB PREMIX 50 ML IV ONE (20:50)
[2024-07-13 21:39] LABS: VENOUS PH BG 7.233 (7.320-7.430)
[2024-07-13 21:40] LABS: VENOUS PCO2 32.4 mmHg (38.0-54.0); VENOUS PO2 20.8 mmHg (23.0-48.0)
[2024-07-13 21:45] VITALS: BP_SYST 116; PULSE 83; RESP 20; TEMP 96.9
[2024-07-14] VITALS: BP_SYST 105; PULSE 76; RESP 18; TEMP 97.2; O2SAT 97
[2024-07-14 08:00] VITALS: BP_SYST 109; PULSE 78; RESP 17; TEMP 97.9; O2SAT 97; O2SAT 98
[2024-07-14 12:00] VITALS: BP_SYST 122; PULSE 74; RESP 18; TEMP 98.1; O2SAT 98
[2024-07-14] MEDS ORDERED: ACETAMINOPHEN 325 MG TABLET PO PRN (12:15)
[2024-07-14] MEDS ORDERED: NALOXONE HCL 0.4 MG/ML AMP (NARCAN) IVP PRN ×2 (12:15)
[2024-07-14] MEDS ORDERED: RENA VITE PO SCH (12:15)
[2024-07-14] MEDS ORDERED: LORazepam 2 MG/ML VIAL IVP PRN (12:15)
[2024-07-14] MEDS ORDERED: ONDANSETRON HCL 4 MG/2 ML VIAL IVP PRN (12:15)
[2024-07-14 12:37] LABS: BASOPHILS # (AUTO) 0.1 K/uL (0.0-0.2); BASOPHILS % (AUTO) 1.2 % (0.0-2.0); EOSINOPHILS # (AUTO) 0.1 K/uL (0.0-0.4); LYMPHOCYTES # (AUTO) 2.2 K/uL (1.0-5.5); MONOCYTES # (AUTO) 0.7 K/uL (0.0-1.0); NEUTROPHILS # (AUTO) 7.6 K/uL (1.8-7.7)
[2024-07-14] MEDS: D5/0.45 NS 1,000 ML IV SCH (12:37)
[2024-07-14 12:40] LABS: EOSINOPHILS % (AUTO) 0.9 % (0.0-4.0); HEMOGLOBIN 8.1 g/dL (12.0-16.0); LYMPHOCYTES % (AUTO) 20.7 % (20.5-51.5); MEAN CORPUSCULAR HEMOGLOBIN 29 pg (27-31); MEAN CORPUSCULAR HGB CONC 32 % (32-36); MONOCYTES % (AUTO) 6.8 % (1.7-9.3); NEUTROPHILS % (AUTO) 70.4 % (40.0-70.0); PLATELET COUNT (AUTO) 234 K/uL (130-430); RED BLOOD CELL COUNT(AUTO) 2.82 MIL/uL (4.2-6.2); RED CELL DISTRIBUTION WIDTH 14.6 % (9.0-15.0); WHITE BLOOD COUNT (AUTO) 10.8 K/uL (4.8-10.8)
[2024-07-14 12:41] LABS: MEAN CORPUSCULAR VOLUME 89 fL (79.0-98.0)
[2024-07-14] MEDS: POTASSIUM CHLORIDE 10 MEQ TABLET.ER PO ONE (12:42)
[2024-07-14] MEDS: NEPHROVITE, (FOLIC ACID/VITAMIN B COMP W-C 1 TAB) PO ONE (12:46)
[2024-07-14] MEDS: FUROSEMIDE 40 MG TABLET PO ONE (12:46)
[2024-07-14 12:54] LABS: CALCIUM 7.8 mg/dL (8.4-11.0); CREATININE 5.07 mg/dL (0.55-1.30)
[2024-07-14 12:57] LABS: POTASSIUM 2.9 mmol/L (3.5-5.1)
[2024-07-14] MEDS: cefTRIAXone 1 GM in D5W 50 ML IV SCH (14:36)
[2024-07-14] MEDS: GABAPENTIN 100 MG CAPSULE PO SCH (14:48)
[2024-07-14] MEDS: HYDROcodone/ACETAMIN 5-325 MG TAB (NORCO/ VICODIN) PO PRN (14:48)
[2024-07-14] MEDS: LORazepam 1 MG TABLET PO PRN (17:33)
[2024-07-14] MEDS: HEPARIN SODIUM,PORCINE 5,000 UNITS/ML VIAL MC ONE (17:39)
[2024-07-14 20:00] VITALS: BP_SYST 97; PULSE 120; RESP 20; TEMP 97.7; O2SAT 99
[2024-07-14] MEDS: CARVEDILOL 3.125 MG TABLET (COREG) PO SCH (21:00)
[2024-07-14] MEDS ORDERED: NON-FORMULARY MEDICATION (Calcium Acetate 2 TAB) PO SCH (21:00)
[2024-07-14] MEDS ORDERED: [UNRECOGNIZED DRUG - OTHER] SUBCUT SCH (21:00)
[2024-07-14] MEDS ORDERED: INSULIN GLARGINE HUM REC ANLOG SUBCUT SCH (21:00)
[2024-07-14] MEDS: ATORVASTATIN 20 MG TABLET PO SCH (21:14)
[2024-07-14] MEDS: CIPROFLOXACIN HCL 500 MG TABLET PO SCH (21:14)
[2024-07-14] MEDS: DULoxetine HCL 30 MG CAPSULE.DR (CYMBALTA) PO SCH (21:14)
[2024-07-14] MEDS: PARoxetine HCL 20 MG TABLET PO SCH (21:14)
[2024-07-14] MEDS: INSULIN REGULAR, HUMAN 100 UNITS/ML, 3 ML VIAL (humuLIN R) SUBCUT PRN (21:27)
[2024-07-15 06:07] LABS: BASOPHILS # (AUTO) 0.2 K/uL (0.0-0.2); BASOPHILS % (AUTO) 1.5 % (0.0-2.0); EOSINOPHILS # (AUTO) 0.1 K/uL (0.0-0.4); HEMATOCRIT 26.2 % (36-48); HEMOGLOBIN 8.6 g/dL (12.0-16.0); LYMPHOCYTES # (AUTO) 3.3 K/uL (1.0-5.5); LYMPHOCYTES % (AUTO) 28.7 % (20.5-51.5); MEAN CORPUSCULAR HEMOGLOBIN 29 pg (27-31); MEAN CORPUSCULAR HGB CONC 33 % (32-36); MEAN CORPUSCULAR VOLUME 88 fL (79.0-98.0); MONOCYTES % (AUTO) 8.5 % (1.7-9.3); NEUTROPHILS % (AUTO) 60.3 % (40.0-70.0); PLATELET COUNT (AUTO) 213 K/uL (130-430); RED BLOOD CELL COUNT(AUTO) 2.98 MIL/uL (4.2-6.2); RED CELL DISTRIBUTION WIDTH 14.6 % (9.0-15.0); WHITE BLOOD COUNT (AUTO) 11.6 K/uL (4.8-10.8)
[2024-07-15 07:00] LABS: CALCIUM 7.8 mg/dL (8.4-11.0); CREATININE 3.22 mg/dL (0.55-1.30); PHOSPHORUS 3.8 mg/dL (2.7-4.5)
[2024-07-15 07:55] LABS: POTASSIUM 2.8 mmol/L (3.5-5.1)
[2024-07-15 08:00] VITALS: O2SAT 96
[2024-07-15] MEDS: POTASSIUM CHLORIDE 10 MEQ TABLET.ER PO SCH (10:35)
[2024-07-15] MEDS: FUROSEMIDE 40 MG TABLET PO SCH (10:35)
[2024-07-15] MEDS: HYDROcodone/ACETAMIN 10-325 MG TAB PO PRN (10:36)
[2024-07-15] MEDS: NEPHROVITE, (FOLIC ACID/VITAMIN B COMP W-C 1 TAB) PO SCH (10:36)
[2024-07-15 11:07] VITALS: BP_SYST 92; PULSE 91; RESP 14; TEMP 98.7; O2SAT 100
[2024-07-15 16:09] VITALS: BP_SYST 110; PULSE 82; RESP 16; TEMP 98.5; O2SAT 96
[2024-07-15 20:00] VITALS: BP_SYST 113; PULSE 88; RESP 18; TEMP 98.6; O2SAT 96
[2024-07-16] VITALS: BP_SYST 101; PULSE 85; RESP 20; TEMP 97.7; O2SAT 96
[2024-07-16 07:24] LABS: BASOPHILS # (AUTO) 0.1 K/uL (0.0-0.2); BASOPHILS % (AUTO) 1.1 % (0.0-2.0); EOSINOPHILS # (AUTO) 0.2 K/uL (0.0-0.4); EOSINOPHILS % (AUTO) 1.8 % (0.0-4.0); HEMATOCRIT 23.7 % (36-48); HEMOGLOBIN 7.5 g/dL (12.0-16.0); LYMPHOCYTES # (AUTO) 3.4 K/uL (1.0-5.5); LYMPHOCYTES % (AUTO) 30.4 % (20.5-51.5); MEAN CORPUSCULAR HEMOGLOBIN 28 pg (27-31); MEAN CORPUSCULAR HGB CONC 32 % (32-36); MEAN CORPUSCULAR VOLUME 90 fL (79.0-98.0); MONOCYTES % (AUTO) 8.8 % (1.7-9.3); NEUTROPHILS # (AUTO) 6.5 K/uL (1.8-7.7); NEUTROPHILS % (AUTO) 57.9 % (40.0-70.0); PLATELET COUNT (AUTO) 186 K/uL (130-430); RED BLOOD CELL COUNT(AUTO) 2.65 MIL/uL (4.2-6.2); RED CELL DISTRIBUTION WIDTH 14.9 % (9.0-15.0); WHITE BLOOD COUNT (AUTO) 11.3 K/uL (4.8-10.8)
[2024-07-16 07:50] LABS: ERYTHROCYTE SEDIMENTATION RATE 18 MM/HR (0-20)
[2024-07-16 07:51] LABS: ALBUMIN 2.3 g/dL (3.4-4.8); CALCIUM 7.1 mg/dL (8.4-11.0); CREATININE 4.26 mg/dL (0.55-1.30); PHOSPHORUS 5.1 mg/dL (2.7-4.5); TOTAL BILIRUBIN 0.3 mg/dL (0.0-1.0)
[2024-07-16 08:00] VITALS: BP_SYST 108; PULSE 82; RESP 16; TEMP 97.1; O2SAT 96
[2024-07-16 08:02] LABS: POTASSIUM 2.9 mmol/L (3.5-5.1)
[2024-07-16] MEDS: POTASSIUM CHLORIDE 40 MEQ, LIDOCAINE JECT 2% PF 100 MG 75 MG in NS 250 ML IV ONE (10:57)
[2024-07-16 11:53] VITALS: BP_SYST 104; PULSE 62; RESP 16; TEMP 97.7; O2SAT 97
[2024-07-16] MEDS: SOD FERRIC GLUC COMPLEX/SUC 125 MG in NS 100 ML IV SCH (14:00)
[2024-07-16] MEDS: CALCIUM GLUC 2 GM/100ML-NACL 100 ML IV ONE (15:54)
[2024-07-16 16:10] VITALS: BP_SYST 113; PULSE 95; RESP 15; TEMP 97.5; O2SAT 98
[2024-07-16] MEDS: MAGNESIUM SULFATE 50 ML IV ONE (16:45)
[2024-07-16] MEDS: EPOETIN ALFA-EPBX 4,000 UNITS/ML VIAL SUBCUT SCH (18:37)
[2024-07-16 23:21] VITALS: BP_SYST 110; PULSE 94; RESP 17; TEMP 98.2; O2SAT 96
[2024-07-16 23:22] VITALS: O2SAT 96
[2024-07-17 02:37] VITALS: BP_SYST 103; PULSE 90; RESP 18; TEMP 98; O2SAT 95
[2024-07-17 06:39] LABS: BASOPHILS # (AUTO) 0.1 K/uL (0.0-0.2); BASOPHILS % (AUTO) 0.9 % (0.0-2.0); EOSINOPHILS # (AUTO) 0.2 K/uL (0.0-0.4); EOSINOPHILS % (AUTO) 1.8 % (0.0-4.0); HEMATOCRIT 23.3 % (36-48); HEMOGLOBIN 7.4 g/dL (12.0-16.0); LYMPHOCYTES # (AUTO) 2.9 K/uL (1.0-5.5); LYMPHOCYTES % (AUTO) 26.8 % (20.5-51.5); MEAN CORPUSCULAR HEMOGLOBIN 29 pg (27-31); MEAN CORPUSCULAR HGB CONC 32 % (32-36); MEAN CORPUSCULAR VOLUME 90 fL (79.0-98.0); MONOCYTES # (AUTO) 0.9 K/uL (0.0-1.0); MONOCYTES % (AUTO) 8.7 % (1.7-9.3); NEUTROPHILS # (AUTO) 6.7 K/uL (1.8-7.7); NEUTROPHILS % (AUTO) 61.8 % (40.0-70.0); PLATELET COUNT (AUTO) 191 K/uL (130-430); RED BLOOD CELL COUNT(AUTO) 2.58 MIL/uL (4.2-6.2); RED CELL DISTRIBUTION WIDTH 14.5 % (9.0-15.0); WHITE BLOOD COUNT (AUTO) 10.9 K/uL (4.8-10.8)
[2024-07-17 07:02] LABS: CALCIUM 8.1 mg/dL (8.4-11.0); CREATININE 4.45 mg/dL (0.55-1.30); PHOSPHORUS 5.3 mg/dL (2.7-4.5); POTASSIUM 3.6 mmol/L (3.5-5.1)
[2024-07-17 07:42] LABS: ERYTHROCYTE SEDIMENTATION RATE 14 MM/HR (0-20)
[2024-07-17 08:01] VITALS: BP_SYST 108; PULSE 94; RESP 17; TEMP 97.6; O2SAT 98
[2024-07-17 08:10] VITALS: O2SAT 97
[2024-07-17 12:05] VITALS: BP_SYST 92; PULSE 75; RESP 20; TEMP 97.2; O2SAT 92
[2024-07-17] MEDS: HEPARIN SODIUM,PORCINE 5,000 UNITS/ML VIAL MC ONE (15:26)
[2024-07-17 16:00] VITALS: BP_SYST 103; PULSE 97; RESP 16; TEMP 97.8; O2SAT 95
[2024-07-17] MEDS: cephALEXin 250 MG CAPSULE PO SCH (16:59)
[2024-07-17 20:00] VITALS: BP_SYST 112; PULSE 103; RESP 20; TEMP 97.3; O2SAT 99
[2024-07-18] VITALS: BP_SYST 110; PULSE 98; RESP 17; TEMP 97.5
[2024-07-18 08:26] LABS: CALCIUM 7.7 mg/dL (8.4-11.0); CREATININE 2.93 mg/dL (0.55-1.30); POTASSIUM 3.6 mmol/L (3.5-5.1)
[2024-07-18 08:57] VITALS: BP_SYST 100; PULSE 88; RESP 16; TEMP 97.4; O2SAT 97
[2024-07-18 09:00] VITALS: O2SAT 97
[2024-07-18 09:26] LABS: BASOPHILS # (AUTO) 0.1 K/uL (0.0-0.2); BASOPHILS % (AUTO) 1.1 % (0.0-2.0); EOSINOPHILS # (AUTO) 0.2 K/uL (0.0-0.4); EOSINOPHILS % (AUTO) 2.7 % (0.0-4.0); HEMATOCRIT 22.6 % (36-48); HEMOGLOBIN 7.4 g/dL (12.0-16.0); LYMPHOCYTES # (AUTO) 2.7 K/uL (1.0-5.5); LYMPHOCYTES % (AUTO) 30.6 % (20.5-51.5); MEAN CORPUSCULAR HEMOGLOBIN 29 pg (27-31); MEAN CORPUSCULAR HGB CONC 33 % (32-36); MEAN CORPUSCULAR VOLUME 89 fL (79.0-98.0); MONOCYTES # (AUTO) 0.8 K/uL (0.0-1.0); MONOCYTES % (AUTO) 9.3 % (1.7-9.3); NEUTROPHILS % (AUTO) 56.3 % (40.0-70.0); PLATELET COUNT (AUTO) 175 K/uL (130-430); RED BLOOD CELL COUNT(AUTO) 2.53 MIL/uL (4.2-6.2); RED CELL DISTRIBUTION WIDTH 14.6 % (9.0-15.0); WHITE BLOOD COUNT (AUTO) 8.8 K/uL (4.8-10.8)
[2024-07-18 13:30] VITALS: BP_SYST 105; PULSE 90; RESP 17; TEMP 97.6; O2SAT 97
[2024-07-18 13:48] LABS: BASOPHILS # (AUTO) 0.1 K/uL (0.0-0.2); BASOPHILS % (AUTO) 1.5 % (0.0-2.0); EOSINOPHILS # (AUTO) 0.2 K/uL (0.0-0.4); EOSINOPHILS % (AUTO) 2.2 % (0.0-4.0); HEMATOCRIT 23.8 % (36-48); HEMOGLOBIN 7.7 g/dL (12.0-16.0); LYMPHOCYTES # (AUTO) 2.1 K/uL (1.0-5.5); LYMPHOCYTES % (AUTO) 23.2 % (20.5-51.5); MEAN CORPUSCULAR HEMOGLOBIN 29 pg (27-31); MEAN CORPUSCULAR HGB CONC 32 % (32-36); MEAN CORPUSCULAR VOLUME 89 fL (79.0-98.0); MONOCYTES # (AUTO) 0.8 K/uL (0.0-1.0); MONOCYTES % (AUTO) 9.1 % (1.7-9.3); NEUTROPHILS # (AUTO) 5.9 K/uL (1.8-7.7); PLATELET COUNT (AUTO) 187 K/uL (130-430); RED BLOOD CELL COUNT(AUTO) 2.68 MIL/uL (4.2-6.2); RED CELL DISTRIBUTION WIDTH 14.6 % (9.0-15.0); WHITE BLOOD COUNT (AUTO) 9.2 K/uL (4.8-10.8)
[2024-07-18 16:59] VITALS: BP_SYST 103; PULSE 89; RESP 16; TEMP 97.5; O2SAT 98
[2024-07-18] MEDS ORDERED: TRAM50TA2 PO (18:42)
[2024-07-18 20:00] VITALS: BP_SYST 132; PULSE 104; RESP 20; TEMP 97.2; O2SAT 98
[2024-07-19] VITALS: BP_SYST 114; PULSE 72; RESP 18; TEMP 97.5
[2024-07-19 11:11] VITALS: BP_SYST 86; PULSE 88; RESP 16; TEMP 98.1; O2SAT 97
[2024-07-19] MEDS: HEPARIN SODIUM,PORCINE 5,000 UNITS/ML VIAL MC ONE (11:15)
[2024-07-19 16:25] VITALS: BP_SYST 107; PULSE 103; RESP 16; TEMP 98.5; O2SAT 95
[2024-07-19 17:37] VITALS: BP_SYST 101; PULSE 103; RESP 16; TEMP 98.8; O2SAT 98
== END 2024-07-19 19:00 | disposition home or self-care (01) | DRG 682 ==
LOC: SED 14:06 → STU 20:26 → SMU 21:15 → STU 21:30 → SMU 07-16 16:00
PROVIDERS: ADMIT Preventive Medicine Preventive Medicine/Occupational Environmental Medicine; ATTEND Specialist
PROC: 5A1D70Z Performance of Urinary Filtration, Intermittent, Less than 6 Hours Per Day (ICD-10-PCS; principal; 2024-07-14)
PROC: 5A1D70Z Performance of Urinary Filtration, Intermittent, Less than 6 Hours Per Day (ICD-10-PCS; 2024-07-17)
PROC: 5A1D70Z Performance of Urinary Filtration, Intermittent, Less than 6 Hours Per Day (ICD-10-PCS; 2024-07-19)
DX: N17.9 Acute kidney failure, unspecified (principal); E43 Unspecified severe protein-calorie malnutrition; I13.2 Hypertensive heart and chronic kidney disease with heart failure and with stage 5 chronic kidney disease, or end stage renal disease; N39.0 Urinary tract infection, site not specified; E87.20 Acidosis, unspecified; I42.9 Cardiomyopathy, unspecified; N18.6 End stage renal disease; E78.00 Pure hypercholesterolemia, unspecified; E11.22 Type 2 diabetes mellitus with diabetic chronic kidney disease; I50.9 Heart failure, unspecified; I25.10 Atherosclerotic heart disease of native coronary artery without angina pectoris; F32.A Depression, unspecified; F41.0 Panic disorder [episodic paroxysmal anxiety]; J44.9 Chronic obstructive pulmonary disease, unspecified; D63.1 Anemia in chronic kidney disease; E87.6 Hypokalemia; E83.52 Hypercalcemia; E11.65 Type 2 diabetes mellitus with hyperglycemia; E88.09 Other disorders of plasma-protein metabolism, not elsewhere classified; D50.9 Iron deficiency anemia, unspecified; E83.41 Hypermagnesemia; E83.39 Other disorders of phosphorus metabolism; D72.829 Elevated white blood cell count, unspecified; E66.9 Obesity, unspecified; Z88.5 Allergy status to narcotic agent; Z88.8 Allergy status to other drugs, medicaments and biological substances; Z99.2 Dependence on renal dialysis; Z91.158 Patient's noncompliance with renal dialysis for other reason; Z68.25 Body mass index [BMI] 25.0-25.9, adult
CPT/HCPCS: 36415; 36600; 71045; 80048; 80053; 80076; 81000; 81001; 81015; 82803; 82948; 83605; 83735; 83880; 84100; 84484; 85025; 85610; 85651; 85730; 86886; 86900; 86901; 87040; 87081; 87086; 90935; 90937; 93005; 97112-GP; 97116-GP; 97530-GP; 99285; G0378; J0696; J1644; J2916; J3475; J3480; J7050; J7060; Q5106